=== PATIENT | male | born 1960 | race Caucasian/White ===

== ENCOUNTER 2018-11-15 23:55 | Inpatient (IN) | payer MEDICAID ==
[~2018-11-15] VITALS: Ht 170.2 cm; Wt 81.2 kg
[~2018-11-15 23:55] MED LIST: ACET-787 PO; BACL20TA4 PO; CLON1TAB1 PO; GABA600T1 PO; MULT1CAP28 PO; OMEP20EC4 PO; VIC PO; [UNRECOGNIZED DRUG - CODE] PO
--- NOTE | 2018-11-15 23:55 | NUR ---
PT TERRELL ALS, TAKEN TO ER BED 9
[2018-11-16 00:02] VITALS: BP 168/95
--- NOTE | 2018-11-16 00:05 | NUR ---
PT TO ED WITH C/O GEN CP PAIN UPON INSPIRATION AND EXPIRATION X 3 HRS. PT DENIES SOB. NO OBVIOUS EDEMA NOTED. CAP REFILL NORMAL; <3 SECONDS. NO APPARENT DISTRESS NOTED. ON ARRIVAL PT HAD 2 CANS OF BEER IN A GROCERY BAG, ALCOHOL WAS REMOVED FROM ROOM AND GIVEN TO SECURITY. PT PLACED INTO BED, PENDING MD DE JESUS.
[2018-11-16 00:37] LABS: HEMATOCRIT 45.2 % (36-52); HEMOGLOBIN 15.5 g/dL (12.0-18.0); MEAN CORPUSCULAR HEMOGLOBIN 32 pg (27-31); MEAN CORPUSCULAR HGB CONC 34 g/dL (33-37); MEAN CORPUSCULAR VOLUME 93.9 fL (80-94); PLATELET COUNT (AUTO) 156 K/uL (140-450); RED BLOOD CELL COUNT(AUTO) 4.81 MIL/uL (4.20-6.10); RED CELL DISTRIBUTION WIDTH 14.5 % (11.6-13.7); WHITE BLOOD COUNT (AUTO) 8.1 K/uL (4.8-10.8)
--- NOTE | 2018-11-16 00:40 | NUR ---
PT STATED, "I AM FEELING SUICIDAL." WHEN ASKED WHAT PROMPTED THIS, PER PT, "IM TIRED OF LIVING. MY MEDICAL ISSUES ARE JUST TOO MUCH. I WANT TO SLIT MY THROAT". ERMD NOTIFIED. WILL CONTINUE TO MONITOR.
[2018-11-16 00:46] LABS: ANION GAP 25.6 (8-16); CHLORIDE 97 mmol/L (98-107); CREATININE 1.3 mg/dL (0.7-1.3); GFR ARICAN-AMERICAN 73 mL/min (>90); GLUCOSE 94 mg/dL (74-106); POTASSIUM 3.6 mmol/L (3.5-5.1); SODIUM SERUM 139 mmol/L (136-145); UREA NITROGEN, BLOOD 14 mg/dL (7-18)
[2018-11-16 00:49] LABS: LYMPHOCYTES % (MANUAL) 10 % (20-46); MONOCYTES % (MANUAL) 3 % (5-12)
[2018-11-16 00:52] LABS: ACETAMINOPHEN < 0.5 ug/ml (10-30); ALBUMIN 4.2 g/dL (3.4-5.0); ASPARTATE AMINOTRANSFERASE 65 U/L (15-37); SALICYLATE < 2.8 mg/dL (2.8-20.0); TOTAL BILIRUBIN 1.1 mg/dL (0.0-1.0)
--- NOTE | 2018-11-16 01:05 | NUR ---
PT UNABLE TO PROVIDE URINE SAMPLE. ERMD NOTIFIED. NO NEW ORDERS.
--- NOTE | 2018-11-16 01:20 | NUR ---
INITIATED TELEPSYCH PER DR. MARTINEZ
--- NOTE | 2018-11-16 02:10 | NUR ---
PT HYPERTENSIVE. ASYMPTOMATIC. ERMD NOTIFIED. NO NEW ORDERS AT THIS TIME.
--- NOTE | 2018-11-16 02:35 | NUR ---
FOLLOW UP CALL TO TELEPSYCH. SPOKE WITH RENNY. TOLD STILL IN QUEUE WITH NO ETA DUE TO LARGE VOLUME OF PSYCH REQUESTS
--- NOTE | 2018-11-16 03:10 | NUR ---
PT HYPERTENSIVE AND TACHY. ERMD NOTIFIED. NEW ORDERS GIVEN FOR LISINOPROL 10MG PO AND NS BOLUS. ORDERS FOLLOWED. Addendum: 11/16/18 at 0524 by [employer] PT HYPERTENSIVE AND TACHYCARDIC. DESIRAE NOTIFIED. NEW ORDERS GIVEN FOR LISINOPROL 10MG PO AND NS BOLUS. ORDERS FOLLOWED.
[2018-11-16] MEDS ORDERED: LISINOPRIL 10 MG TAB PO ONE (03:15)
[2018-11-16] MEDS ORDERED: NACL 0.9% 1,000 ML IV ONE (03:15)
--- NOTE | 2018-11-16 04:00 | NUR ---
PT ASLEEP, EASILY AROUSABLE TO NAME. VSS. WILL CONTINUE TO MONITOR.
--- NOTE | 2018-11-16 04:13 | NUR ---
TELEPSYCH, DR. MICHEL, CALLED BACK AND SPOKE WITH TIMMY MCKAY
--- NOTE | 2018-11-16 04:18 | NUR ---
TELEPSYCH, DR. MICHEL, SPOKE WITH PATIENT VIA REMOTE COMMUNICATION
[2018-11-16] MEDS ORDERED: NALOXONE 0.4 MG/ML VIAL ONE (04:35)
--- NOTE | 2018-11-16 05:06 | NUR ---
PT MOVED TO BED 5
--- NOTE | 2018-11-16 05:07 | NUR ---
[place] [employer] AT BEDSIDE FOR 5150 EVAL
[2018-11-16] MEDS ORDERED: TIM.5OS OP (05:16)
[2018-11-16] MEDS ORDERED: DIAZ2TAB6 PO (05:16)
--- NOTE | 2018-11-16 05:35 | NUR ---
PT PLACED ON 5150 HOLD BY [facility] TSAI
[2018-11-16] MEDS ORDERED: LORazepam 2 MG/ML VIAL IVP ONE (06:00)
--- NOTE | 2018-11-16 06:00 | NUR ---
PT AWAKE. VSS. BEDRAIL X1 UP. BED IN LOWEST POSTION. WILL CONTINUE TO MONITOR.
[2018-11-16] MEDS ORDERED: ONDANSETRON 4 MG/2 ML VIAL IVP PRN (06:20)
[2018-11-16] MEDS ORDERED: ZOLPIDEM 5 MG TAB PO PRN (06:20)
[2018-11-16] MEDS ORDERED: LORazepam 2 MG/ML VIAL IVP PRN (06:20)
[2018-11-16] MEDS ORDERED: ACETAMINOPHEN 325 MG TAB PO PRN (06:20)
--- NOTE | 2018-11-16 06:27 | NUR ---
At this time packet is being reviewed for placement at multiple designated facilities , ER will be notified if placement is found.
[2018-11-16 06:29] LABS: BARBITURATE, URINE NEG. ng/ml (NEG <=200); BENZODIAZEPINE, URINE NEG. ng/mL (NEG <=200); CANNABINOID, URINE NEG. ng/mL (NEG <=50); COCAINE, URINE NEG. ng/mL (NEG <=300); OPIATE, URINE POS. ng/mL (NEG <=2000); PHENCYCLIDINE SCREEN,URINE NEG. ng/mL (NEG <=25)
--- NOTE | 2018-11-16 06:40 | NUR ---
Patient will be admitted to care of Dr Montes. Admited to telemetry. Will go to room 109A. Belongings list completed. Report to TIMMY Mcintyre. Transfer of care at this time.
[2018-11-16] MEDS ORDERED: NACL 0.9% 1,000 ML IV SCH (07:00)
[2018-11-16] MEDS ORDERED: cloNIDine 0.1 MG TAB PO PRN (07:25)
[2018-11-16] MEDS ORDERED: NITROGLYCERIN 0.4 MG TAB SL PRN (07:25)
--- NOTE | 2018-11-16 07:30 | NUR ---
RECEIVED PT REPORT FROM NIGHT CHARGE NURSE. PT IS AAOX4. PT AMBULATED TO RESTROOM, NO S/S OF ACUTE DISTRESS ON ROOM AIR. PT IS WITH SITTER, ON 5150 HOLD. PT ADMITTED TO , STATED HE CUT HIS THROAT RECENTLY. PT'S HANDS SHAKING WHEN STANDING. TOLD PT TO SIT DOWN. PT FOLLOWING COMMANDS. WILL ADMINISTER ATIVAN. IV TO RIGHT FA 24 G, PATENT AND INTACT. BED IN LOWEST POSITION, SAFETY PRECAUTION IN PLACE.
[2018-11-16 07:31] LABS: FREE T4 (FREE THYROXINE) 1.01 ng/dL (0.76-1.46); MAGNESIUM 1.9 mg/dL (1.8-2.4); PHOSPHORUS 3.3 mg/dL (2.5-4.9); THYROID STIMULATING HORMONE 3.61 uIU/mL (0.34-3.74)
[2018-11-16 08:00] VITALS: BP 146/77
--- NOTE | 2018-11-16 08:16 | NUR ---
PATIENT HAS BEEN SCREENED AND CATEGORIZED MODERATE NUTRITION RISK. PATIENT WILL BE SEEN WITHIN 3-5 DAYS OF ADMISSION. 11/17/18ANNA NGUYEN RD
[2018-11-16] MEDS: HYDROcodone/APAP 7.5/325 MG 1 TAB PO PRN (08:32)
[2018-11-16] MEDS: THIAMINE 100 MG TAB PO SCH (09:59)
[2018-11-16] MEDS: LISINOPRIL 5 MG TAB PO SCH (09:59)
[2018-11-16] MEDS: FOLIC ACID 1 MG TAB PO SCH (10:00)
[2018-11-16] MEDS ORDERED: MULTIVITAMIN-12 10 ML, THIAMINE 100 MG, MAGNESIUM SULFATE 50% 2,000 MG, FOLIC ACID 1 MG... IV SCH ×5 (10:00)
[2018-11-16] MEDS: MULTIVITAMIN 1 TAB PO SCH (10:01)
[2018-11-16] MEDS: DOCUSATE SODIUM 100 MG GELCAP PO SCH ×2 (10:01→20:40)
--- NOTE | 2018-11-16 10:05 | NUR ---
ANOTHER IV STARTED ON RIGHT HAND 22G. PT TOLERATED WELL.
[2018-11-16] MEDS ORDERED: ASPIRIN 81 MG TAB.CHEW PO SCH (10:15)
--- NOTE | 2018-11-16 10:22 | NUR ---
Late Entry- Packets faxed to the following facilities: [facility]
--- NOTE | 2018-11-16 10:35 | NUR ---
PT WAS TRYING TO GET OUT OF BED AND KEPT ASKING ABOUT TV AND SMOKING. REORIENT PT THIS IS SMOKE-FREE FACILITY EVEN OUTSIDE OF HOSPITAL AND LET PT STAY AT BED. OFFERED PT NICOTINE PATCH BUT PT REFUSED. PT'S HAND STILL SHAKING AND ATIVAN WILL BE GIVEN.
[2018-11-16] MEDS: LORazepam 2 MG/ML VIAL IM/IVP PRN (10:43)
[2018-11-16 12:00] VITALS: BP 103/70
--- NOTE | 2018-11-16 12:03 | NUR ---
AWAKE AND ALERT PATIENT WITH LUNCH TRAY AT THIS TIME VENEER GLUER TO ATTEMPT EKG AT A LATER TIME
[2018-11-16] MEDS ORDERED: cloNIDine 0.1 MG TAB PO SCH (13:00)
[2018-11-16] MEDS: LORazepam 1 MG TAB PO SCH ×2 (13:23→20:40)
[2018-11-16] MEDS ORDERED: VENLAFAXINE 37.5 MG TAB PO SCH (14:33)
--- NOTE | 2018-11-16 14:43 | NUR ---
HEPARIN HELD, NO APTT AVAILABLE AT THIS TIME. PT IS ALCOHOL ABUSER. PLATELET 154. PT WALKS OCCASIONALLY.
--- NOTE | 2018-11-16 15:50 | NUR ---
CALLED [facility] MEDICAL RECORD, LEFT A MESSAGE ASKING TO EXPEDITE THE ORDER FOR THE MEDICATION LIST AND RECORD.
[2018-11-16 16:00] VITALS: BP 138/58
--- NOTE | 2018-11-16 16:00 | NUR ---
PT WAS SLEEPING IN THE BED. NO S/S OF ANY DISCOMFORT. NO SOB NOTED. BREATHING EVEN AND UNLABORED. IV SITE INTACT, DRY, AND ASYMPTOMATIC.
[2018-11-16 17:25] LABS: BASOPHILS % (AUTO) 1.3 % (0.0-2.0); EOSINOPHILS # (AUTO) 0.1 K/uL (0-0.4); EOSINOPHILS % (AUTO) 2.7 % (0.0-4.0); HEMATOCRIT 39.8 % (36-52); HEMOGLOBIN 13.8 g/dL (12.0-18.0); LYMPHOCYTES # (AUTO) 0.8 K/uL (2.0-11.5); LYMPHOCYTES % (AUTO) 20.3 % (20.5-51.1); MEAN CORPUSCULAR HEMOGLOBIN 32 pg (27-31); MEAN CORPUSCULAR HGB CONC 35 g/dL (33-37); MEAN CORPUSCULAR VOLUME 93.3 fL (80-94); MONOCYTES # (AUTO) 0.5 K/uL (0.8-1.0); MONOCYTES % (AUTO) 13.1 % (1.7-9.3); NEUTROPHILS # (AUTO) 2.4 K/uL (1.8-7.7); NEUTROPHILS % (AUTO) 62.6 % (42.2-75.2); RED BLOOD CELL COUNT(AUTO) 4.26 MIL/uL (4.20-6.10); WHITE BLOOD COUNT (AUTO) 3.8 K/uL (4.8-10.8)
--- NOTE | 2018-11-16 17:25 | NUR ---
PT SLEEPING, NO S/S OF ACUTE DISTRESS NOTED.
[2018-11-16 18:15] LABS: PLATELET COUNT (AUTO) 88 K/uL (140-450)
--- NOTE | 2018-11-16 19:10 | NUR ---
RECEIVED PT IN STABLE CONDITION FROM AM NURSE. ASLEEP BUT EASILY AROUSE WHEN NAME CALLED. ON TELE MONITOR. WITH NO S/S OF ANY DISCOMFORT NOR PAIN NOTED AT THIS TIME. IVF INFUSING WELL ON THE RT HAND G#22 CLEAR AND PATENT. BED ON LOWEST POSITION. SIDE RAILS TO BE PADDED FOR SEIZURE PRECAUTION. SITTER FOR 51/50 HOLD. WILL CONTINUE TO MONITOR.
--- NOTE | 2018-11-16 19:10 | NUR ---
ENDORSED PT TO CLERICAL MANAGER NURSE. PT IN STABLE CONDITION. PT SLEEPING QUIETLY. NO S/S OF ACUTE RESPIRATORY DISTRESS.
--- NOTE | 2018-11-16 19:40 | NUR ---
URINE SPECIMEN COLLECTED FOR ANALYSIS. SEND TO LAB.
[2018-11-16] MEDS: NACL 0.9% 1,000 ML IV SCH ×2 (20:00→20:05)
[2018-11-16 20:01] LABS: APPEARANCE,URINE CLEAR (CLEAR); BILIRUBIN,URINE NEGATIVE (NEGATIVE); BLOOD, URINE NEGATIVE (NEGATIVE); COLOR,URINE YELLOW (YELLOW); LEUKOCYTE ESTERASE ,URINE NEGATIVE (NEGATIVE); NITRITE, URINE NEGATIVE (NEGATIVE); UGLUCOSE NEGATIVE (NEGATIVE)
--- NOTE | 2018-11-16 20:10 | NUR ---
DR. JORGE CAME AND TALKED TO PT. ACCORDING TO DR. JORGE , PT IS TAKING MED FOR HIV. HE TALKED TO DR. WALLACE ABOUT THE MEDICATION.
--- NOTE | 2018-11-16 20:19 | NUR ---
TROPONIN ORDERED FOR 1600 ON UNCOLLECTED AND ALSO THE 3RD TROPONIN. DR. WALLACE MADE AWARE . WILL CHANGE THE ORDER.
[2018-11-16 20:35] VITALS: BP 102/64
[2018-11-16] MEDS: ATORVASTATIN 20 MG TAB PO SCH (20:41)
[2018-11-16] MEDS: FAMOTIDINE 20 MG TAB PO SCH (20:41)
--- NOTE | 2018-11-16 21:34 | NUR ---
Follow up calls were made to contracted psych facilities. Currently no beds available sandy. [facility], spoke with Ramon. [facility], spoke with Derrick. [facility], spoke with Betzy. [facility], spoke with Nicole. [facility], spoke with Lanie. [facility], spoke with Susan. Will continue to follow up with contracted facilities for placement.
--- NOTE | 2018-11-16 21:39 | NUR ---
Ron PRATT CAME AND MADE HIM AWARE ABOUT THE PLATELETS THAT DROPPED FROM 156 TO 88. HE SAID TO DC HEPARIN. DR. WALLACE MADE AWARE ABOUT THIS.
--- NOTE | 2018-11-16 23:00 | NUR ---
PHARMACY CALLED TO CLARIFY AZITHROMYCIN PO ORDERED. DR. WALLACE MADE AWARE .
[2018-11-16 23:30] VITALS: BP 107/70
--- NOTE | 2018-11-17 01:00 | NUR ---
PT GOT UP TO THE SIDE OF THE BED. NOTICED THAT PT IV IS ALREADY OUT. PT IS WET. IV STOPPED . CLEANED PT AND GOWN CHANGED TO A CLEAN ONE. BUT PT REFUSED TO HAVE A NEW IV ACCESS STARTED AT THIS TIME. HE SAID HE DOESN'T NEED IT. SHE JUST GO BACK TO SLEEP. WILL TRY LATER .
--- NOTE | 2018-11-17 02:00 | NUR ---
PT IS ASLEEP. NO S/S OF ANY DISCOMFORT NOR PAIN NOTED.
--- NOTE | 2018-11-17 02:25 | NUR ---
PT IS ASLEEP. NO S/S OF ANY DISCOMFORT NOTED. WILL CONTINUE TO MONITOR.
--- NOTE | 2018-11-17 02:50 | NUR ---
DR. WALLACE,RESIDENT MD MADE AWARE THAT PT REFUSED TO START A NEW IV ACCESS.
[2018-11-17] MEDS: LORazepam 1 MG TAB PO SCH (04:42)
[2018-11-17 04:45] VITALS: BP 119/53
--- NOTE | 2018-11-17 04:45 | NUR ---
TOLD PT THE NEED TO RESTART A NEW IV ACCESS BUT PT GOT MAD AND AND KEEP ON REFUSING. EVEN JUST TAKING VITAL SIGNS,HE COMPLAINED . WILL HAVE DR. WALLACE,RESIDENT MAX ALVARADO.
[2018-11-17] MEDS: NACL 0.9% 1,000 ML IV SCH ×2 (06:00→16:00)
--- NOTE | 2018-11-17 06:00 | NUR ---
BLOOD WAS DRAWN THIS AM . WILL FOLOW UP RESULT.
[2018-11-17 06:39] LABS: BASOPHILS % (AUTO) 0.5 % (0.0-2.0); EOSINOPHILS # (AUTO) 0.1 K/uL (0-0.4); EOSINOPHILS % (AUTO) 1.8 % (0.0-4.0); HEMOGLOBIN 13.5 g/dL (12.0-18.0); LYMPHOCYTES # (AUTO) 0.7 K/uL (2.0-11.5); LYMPHOCYTES % (AUTO) 18.3 % (20.5-51.1); MEAN CORPUSCULAR HEMOGLOBIN 32 pg (27-31); MEAN CORPUSCULAR HGB CONC 35 g/dL (33-37); MONOCYTES # (AUTO) 0.4 K/uL (0.8-1.0); MONOCYTES % (AUTO) 10.1 % (1.7-9.3); NEUTROPHILS # (AUTO) 2.7 K/uL (1.8-7.7); NEUTROPHILS % (AUTO) 69.3 % (42.2-75.2); PLATELET COUNT (AUTO) 70 K/uL (140-450); RED CELL DISTRIBUTION WIDTH 14.2 % (11.6-13.7); WHITE BLOOD COUNT (AUTO) 3.9 K/uL (4.8-10.8)
[2018-11-17 06:55] LABS: ANION GAP 13.7 (8-16); CARBON DIOXIDE 24.5 mmol/L (21-32); CREATININE 0.9 mg/dL (0.7-1.3); POTASSIUM 3.2 mmol/L (3.5-5.1)
--- NOTE | 2018-11-17 07:10 | NUR ---
ENDORSED PT IN STABLE CONDITION TO AM NURSE.
--- NOTE | 2018-11-17 07:15 | NUR ---
RECEIVED PT FROM BIOENGINEER NURSEGAGE, PT IS AWAKE AND LYING ON THE BED WITH SITTER ON THE BEDSIDE, PT HAS MILD SHAKINESS ON THE HAD AND HAS NO PERIPHERAL LINE, PT PULLED OUT THE IV LINE PER NIGHT NURSE AND PT REFUSED ANOTHER RE-INSERTION. FALL PRECAUTION ENFORCED, NO SIGN OF DISTRESS NOTED AND WILL MONITOR PT.
[2018-11-17 08:00] VITALS: BP 116/80
[2018-11-17] MEDS ORDERED: POTASSIUM CHLORIDE 10 MEQ TABER PO SCH (08:00)
[2018-11-17] MEDS ORDERED: SODIUM PHOSPHATE 15 MMOLE in NACL 0.9% 250 ML IV SCH (08:00)
[2018-11-17] MEDS: SODIUM PHOS / POTASSIUM PHOS 1 PKT PDR PO SCH ×3 (08:54→16:36)
[2018-11-17] MEDS: FOLIC ACID 1 MG TAB PO SCH (08:54)
[2018-11-17] MEDS: FAMOTIDINE 20 MG TAB PO SCH ×2 (08:54→20:00)
[2018-11-17] MEDS: GABAPENTIN 300 MG CAP PO SCH ×3 (08:55→16:35)
[2018-11-17] MEDS: LISINOPRIL 5 MG TAB PO SCH (08:55)
[2018-11-17] MEDS: VENLAFAXINE 37.5 MG TAB PO SCH (08:55)
[2018-11-17] MEDS: DOCUSATE SODIUM 100 MG GELCAP PO SCH ×2 (08:55→20:00)
[2018-11-17] MEDS: MULTIVITAMIN 1 TAB PO SCH (08:56)
[2018-11-17] MEDS: chlordiazePOXIDE 25 MG CAP PO SCH ×3 (08:56→16:35)
[2018-11-17] MEDS: BACLOFEN 10 MG TAB PO SCH ×3 (08:57→16:34)
[2018-11-17] MEDS: THIAMINE 100 MG TAB PO SCH (08:57)
[2018-11-17] MEDS ORDERED: DIAZEPAM 2 MG TAB PO SCH (09:00)
[2018-11-17] MEDS ORDERED: AZITHROMYCIN SUSP 200 MG/5 ML PO SCH (09:00)
[2018-11-17] MEDS ORDERED: GABAPENTIN PO SCH (09:00)
[2018-11-17] MEDS ORDERED: ASPIRIN 81 MG TAB.CHEW PO SCH (09:00)
[2018-11-17] MEDS ORDERED: SULFAMETH/TRIMETH DS 800/160MG 1 TAB PO SCH ×2 (09:00)
[2018-11-17] MEDS ORDERED: BACLOFEN PO SCH (09:00)
[2018-11-17] MEDS: TIMOLOL OP 0.5% 5 ML BTL OP SCH ×2 (09:08→20:09)
--- NOTE | 2018-11-17 09:09 | NUR ---
PT IS AWAKE AND ORAL MEDICATIONS WERE GIVEN AND PT TOLERATED IT, VITAL SIGNS CHECKED AND IS WITHIN NORMAL LIMIT. WILL MONITOR PT.
[2018-11-17] MEDS ORDERED: EMTRICITABINE/TENOFOVIR 200-300MG 1 TAB PO SCH (09:20)
[2018-11-17] MEDS ORDERED: SODIUM CHLORIDE 1 GM TAB PO SCH (10:00)
--- NOTE | 2018-11-17 11:53 | NUR ---
PT IS AWAKE AND VITAL SIGNS CHECKED AND IS WITHIN NORMAL LIMIT, ORAL MEDICATIONS GIVEN AND PT TOLERATED IT. NO SIGN OF DISTRESS NOTED AND WILL MONITOR PT.
[2018-11-17 12:00] VITALS: BP 116/80
[2018-11-17] MEDS: HYDROcodone/APAP 7.5/325 MG 1 TAB PO PRN ×2 (12:03→16:36)
[2018-11-17] MEDS: NICOTINE TRANSD SYS 7 MG/24 HR PATCH TD SCH (13:18)
--- NOTE | 2018-11-17 13:19 | NUR ---
PT IS AWAKE AND LYING ON THE BED, SITTER ON THE BEDSIDE, VERBALIZED A HEADACHE OF 6/10, ASKED FOR TYLENOL, NICOTINE PATCH APPLIED ON THE RT UA, NMO SIGN OF DISTRESS NOTED AN WILL MONITOR PT.
--- NOTE | 2018-11-17 13:50 | NUR ---
DR. FELIPE CAME TO THE PT'S ROOM AND SPOKE TO PT NOW, PT RESPONDING APPROPRIATELY.
[2018-11-17 16:00] VITALS: BP 127/79
--- NOTE | 2018-11-17 16:18 | NUR ---
IVF WAS NOT STARTED BECAUSE PT HAS NO IV LINE AND REFUSED TO HAVE AN INSERTION.
--- NOTE | 2018-11-17 16:40 | NUR ---
PT IS BEING RUDE NOW, WAS ASKED TO CALM DOWN AND VITAL SIGNS WAS TAKEN AND BP WAS 127/79, PULSE IS81, O2 SATURATION IS 98%, TEMPERATURE IS 98.4, AND RESPIRATION IS 18/MIN, PT VERBALIZED A PAIN RATE OF 7/10 AND ORAL MEDICATIONS WERE GIVEN AND PT TOLERATED IT. WILL MONITOR AND RE-ASSESS PAIN.
--- NOTE | 2018-11-17 16:40 | NUR ---
PT STARTED TO BE RUDE AND SHOUTING AND IS ASKING FOR PAIN MEDICATION, PT IMMEDIATELY GOT UP FROM THE BED AND WAS ACCIDENTALLY TRIPPED ON THE BLANKET AND FELL ON HIS KNEES AND HANDS AND BUMPED HIS HEAD ON THE FLOOR REPORTED BY THE SITTER ON THE BEDSIDE, NURSERY RN. PT WAS ASSISTED BACK TO BED AND VITAL SIGNS WAS TAKEN AND BP IS 127/79, PULSE IS 81, TEMPERATURE IS 98.4, O2 SATURATION IS 98% AND RESPIRATION IS EVEN AND AT A RATE 0F 18/MIN. PT WAS ASSISTED BACK TO BED WITH THE HELP OF NURSE IMAGING SYSTEM ADMINISTRATORKVNG, TALKING TO PT AND MAKING PT FEEL CALM. WILL MONITOR PT.
--- NOTE | 2018-11-17 19:20 | NUR ---
ENDORSED PT TO WET MIXER NURSEGAGE FOR CONTINUITY OF CARE, PT IS UP AND TO THE DOOR, VERBALIZED THAT HE IS ALREADY WILLING TO HAVE AN IV LINE RE-INSERTED, PT IS STABLE AT THIS TIME WITH 1:1 SITTER ON THE BEDSIDE.
--- NOTE | 2018-11-17 19:21 | NUR ---
RECEIVED PT IN STABLE CONDITION FROM AM NURSE. PT IS AWAKE,ALERT AND ORIENTED. ON TELE MONITOR. WITH 1;1 SITTER FOR SAFETY DUE TO SUICIDAL THOUGHTS. NO IV ACCESS AT THIS TIME. BED ON LOW POSITION,SIDE RAILS ARE PADDED FOR SEIZURE PRECAUTIONS. CLOSED OBSERVATION AND MONITORING NEEDED FOR SAFETY. WILL CONTINUE TO MONITOR.
[2018-11-17 20:00] VITALS: BP 102/68
[2018-11-17] MEDS: ATORVASTATIN 20 MG TAB PO SCH (20:00)
[2018-11-17] MEDS: LORazepam 2 MG/ML VIAL IM/IVP PRN ×2 (20:00→23:27)
--- NOTE | 2018-11-17 20:00 | NUR ---
VERY AGITATED BUT PT ALLOWED ME TO START A NEW IV ACCESS .NEW ONE ON THE RT FA G#22. CLEAR AND PATENT. ATIVAN IVP GIVEN ORDERED. IVF NS AT 100ML /HR RESTARTED ORDERED AFTER. WILL CONTINUE TO MONITOR.
--- NOTE | 2018-11-17 21:29 | NUR ---
PT HAS BEEN ASKING AND YELLING FOR IV PAIN MEDS. I TOLD HIM NORCO IS ORDERED FOR PAIN. HE REFUSED . CALLED DR. WALLACE ,RESIDENT . MADE HIM AWARE. CAME AND TALKED TO PT. GIVEN ORDERED PERCOCET FOR PAIN. WILL CONTINUE TO MONITOR.
[2018-11-17] MEDS ORDERED: oxyCODONE/APAP 5/325 MG 1 TAB TAB PO SCH (21:30)
--- NOTE | 2018-11-17 21:40 | NUR ---
PT GETTING OUT OF BED AND SAID HE WANTS TO GO HOME TONIGHT. HARD TO CONTROL. CALLED SECURITY , CHARGE NURSE AND DR. WALLACE CAME ALSO. EXPLAINED TO HIM THAT HE IS ON HOLD. SECURITY STAYED FOR A WHILE AND TALKED TO HIM. LEFT WHEN PT ALREADY BACK IN BED.
--- NOTE | 2018-11-17 22:27 | NUR ---
PT IS SLEEPING AT THIS TIME. NO S/S OF ANY PAIN NOR DISCOMFORT NOTED. WILL CONTINUE TO MONITOR.
--- NOTE | 2018-11-17 23:27 | NUR ---
UT IS AWAKE, YELLING AND THREATENING. WANTS TO GO HOME. SECURITY CAME, HOTEL DESK CLERK HERE. ATIVAN IVP GIVEN ORDERED.
--- NOTE | 2018-11-17 23:51 | NUR ---
LINEN GRADER JUST CALLED, FOLLOWING UP THE ORDER FOR CT HEAD WITHOUT CONTRAST. TOLD HER THAT PT RIGHT NOW IS AGITATED AND YELLING TO US SO. NOT RIGHT TIME TO DO IT. WILL LET HER KNOW WHEN PT CALM DOWN.
[2018-11-18 00:34] VITALS: BP 118/76
[2018-11-18] MEDS: HYDROcodone/APAP 7.5/325 MG 1 TAB PO PRN ×3 (01:02→20:49)
--- NOTE | 2018-11-18 01:15 | NUR ---
PT SLEEPING AT THIS TIME. NO DISCOMFORT NOTED.
[2018-11-18] MEDS: NACL 0.9% 1,000 ML IV SCH ×2 (02:00→17:44)
[2018-11-18] MEDS: LORazepam 2 MG/ML VIAL IM/IVP PRN ×4 (03:14→18:32)
--- NOTE | 2018-11-18 03:14 | NUR ---
PT YELLING AGAIN ,VERY AGITATED. RN TETRYL WRINGER OPERATOR CAME AND TALKED TO PT. ATIVAN IVP ORDERED GIVEN. WILL CONTINUE TO MONITOR.
--- NOTE | 2018-11-18 03:35 | NUR ---
Called following contracted facilities for bed placement. [facility], spoke with Jazmine. No beds available at this time. [facility], spoke with Sunita. [facility], spoke with Brad. No beds available sandy. [facility], spoke with Eliane. No beds available at this time. [facility], spoke with Kristal. No beds available at this time. [facility], spoke with Susan.
--- NOTE | 2018-11-18 05:10 | NUR ---
BURLAP BAG SEWER HERE TO SEE IF PT IS READY FOR THE CT SCAN WITHOUT CONTRAST. PT IS SLEEPING WELL AT THIS TIME AFTER THE ATIVAN GIVEN EARLIER. WILL TRY LATER TODAY . DR. WALLACE RESIDENT, MADE AWARE.
[2018-11-18 05:30] VITALS: BP 120/74
--- NOTE | 2018-11-18 05:50 | NUR ---
PT ASKED IF HE IS READY TO GO FOR CT SCAN HEAD WITHOUT CONTRAST. HE REFUSED. WILL ENDORSED TO AM NURSE.
[2018-11-18 06:59] LABS: ANION GAP 11.8 (8-16); CARBON DIOXIDE 26.8 mmol/L (21-32); CREATININE 1.2 mg/dL (0.7-1.3); POTASSIUM 3.6 mmol/L (3.5-5.1)
--- NOTE | 2018-11-18 07:02 | NUR ---
ENDORSED PT IN STABLE CONDITION TO AM NURSE FOR CONTINUITY OF CARE.
--- NOTE | 2018-11-18 07:05 | NUR ---
RECEIVED PT FROM FAMILY SERVICE WORKER NURSEGAGE, PT IS AWAKE AND AMBULATING IN THE ROOM AND TALKING AND YELLING, AGGRESSIVE TO STAFF, PT HAS AN IV LINE ON THE RT FA G.22 ON SALINE LOCK, 1:1 SITTER ON BEDSIDE. PT SHOWS NO SIGN OF DISTRESS AND WILL CONTINUE TO BE MONITORED
[2018-11-18 07:06] LABS: BASOPHILS % (AUTO) 1.2 % (0.0-2.0); EOSINOPHILS # (AUTO) 0.1 K/uL (0-0.4); EOSINOPHILS % (AUTO) 4.6 % (0.0-4.0); HEMATOCRIT 40.3 % (36-52); LYMPHOCYTES # (AUTO) 0.9 K/uL (2.0-11.5); LYMPHOCYTES % (AUTO) 33.4 % (20.5-51.1); MEAN CORPUSCULAR HEMOGLOBIN 33 pg (27-31); MEAN CORPUSCULAR HGB CONC 35 g/dL (33-37); MEAN CORPUSCULAR VOLUME 93.9 fL (80-94); MONOCYTES # (AUTO) 0.3 K/uL (0.8-1.0); MONOCYTES % (AUTO) 12.8 % (1.7-9.3); NEUTROPHILS # (AUTO) 1.3 K/uL (1.8-7.7); PLATELET COUNT (AUTO) 77 K/uL (140-450); RED BLOOD CELL COUNT(AUTO) 4.29 MIL/uL (4.20-6.10); WHITE BLOOD COUNT (AUTO) 2.7 K/uL (4.8-10.8)
[2018-11-18 07:10] LABS: MAGNESIUM 2.3 mg/dL (1.8-2.4); PHOSPHORUS 2.2 mg/dL (2.5-4.9)
[2018-11-18 08:00] VITALS: BP 116/69
--- NOTE | 2018-11-18 08:00 | NUR ---
PT IS EATING HIS BREAKFAST AND SITTER ON BEDSIDE, VITAL SIGNS TAKEN AND BP IS 116/69, PULSE IS 74, TEMPERATURE IS 97.3, O2 SATURATION IS 100%, RESPIRATION IS 18/MIN, PT IS AGGRESSIVE AND SHOUTS AT STAFF, NO SIGN OF DISTRESS NOTED AND WILL CONTINUE TO MONITOR PT. 1:1 SITTER ON BEDSIDE.
--- NOTE | 2018-11-18 08:15 | NUR ---
PT TOOK A SHOWER NOW ORDERED BY DR. LIU.
--- NOTE | 2018-11-18 08:16 | NUR ---
PT WAS TRANSFERRED TO MED SURG NOW, RN TRANSPLANT REMOVED.
[2018-11-18] MEDS: BACLOFEN 10 MG TAB PO SCH ×3 (08:39→16:38)
[2018-11-18] MEDS: DOCUSATE SODIUM 100 MG GELCAP PO SCH ×2 (08:39→20:48)
[2018-11-18] MEDS: VENLAFAXINE 37.5 MG TAB PO SCH (08:39)
[2018-11-18] MEDS: TIMOLOL OP 0.5% 5 ML BTL OP SCH ×2 (08:39→20:48)
[2018-11-18] MEDS: MULTIVITAMIN 1 TAB PO SCH (08:40)
[2018-11-18] MEDS: THIAMINE 100 MG TAB PO SCH (08:40)
[2018-11-18] MEDS: FAMOTIDINE 20 MG TAB PO SCH ×2 (08:40→20:49)
[2018-11-18] MEDS: GABAPENTIN 300 MG CAP PO SCH ×3 (08:40→16:37)
[2018-11-18] MEDS: FOLIC ACID 1 MG TAB PO SCH (08:40)
--- NOTE | 2018-11-18 08:40 | NUR ---
PT IS AWAKE, SITTER ON BEDSIDE, VITAL SIGNS CHECKED AND IS WITHIN NORMAL LIMIT, PT IS TALKING LOUDLY, ORAL MEDICATIONS WERE GIVEN AND PT TOLERATED IT. NO SIGN OF DISTRESS NOTED AND WILL MONITOR PT.
[2018-11-18] MEDS: LISINOPRIL 5 MG TAB PO SCH (08:41)
[2018-11-18] MEDS: EMTRICITABINE/TENOFOVIR 200-300MG 1 TAB PO SCH (08:41)
[2018-11-18] MEDS: chlordiazePOXIDE 25 MG CAP PO SCH ×3 (08:41→16:38)
[2018-11-18] MEDS: SODIUM PHOS / POTASSIUM PHOS 1 PKT PDR PO SCH ×3 (08:42→16:37)
[2018-11-18] MEDS ORDERED: LORazepam 2 MG/ML VIAL IM/IVP PRN (09:20)
[2018-11-18] MEDS ORDERED: LORazepam 2 MG/ML VIAL IVP SCH (09:30)
--- NOTE | 2018-11-18 09:45 | NUR ---
PT ANXIOUS ,Bp obtained 116/64,
--- NOTE | 2018-11-18 10:22 | NUR ---
[facility] attempted to contact case management social worker, Jo, left message regarding medical clearance, need clarification.
[2018-11-18] MEDS ORDERED: CEPH250C16 PO (11:17)
[2018-11-18] MEDS ORDERED: LIB5 PO (11:20)
[2018-11-18 12:00] VITALS: BP 123/84
--- NOTE | 2018-11-18 12:27 | NUR ---
FOLLOW UP CALL MADE TO CT TALKED TO RA, REGARDING THE CT OF THE HEAD, PER RA SHE WILL CALL US BACK WHEN THE CT COME BACK FROM BREAK, ENDORSED TO VANDANA TO FF UP.
[2018-11-18] MEDS: NICOTINE TRANSD SYS 7 MG/24 HR PATCH TD SCH (13:13)
--- NOTE | 2018-11-18 14:20 | NUR ---
PT REFUSED TO HAVE THE CT OF HEAD DONE PER RAD LINOLEUM LAYER APPRENTICE.
[2018-11-18 16:00] VITALS: BP 103/72
--- NOTE | 2018-11-18 16:07 | NUR ---
LATE ENTRY. RECEIVED A CALL THIS MORNING FROM [facility], [place], ASKING IF THE PATIENT WAS MEDICALLY CLEARED. I GAVE THE MESSAGE TO ASSIGNED WIRE ROPE SLING MAKER
--- NOTE | 2018-11-18 18:32 | NUR ---
PT IS YELLING AND SHOUTING AND IS ASKING FOR AN ATIVAN, MEDICATION WAS GIVEN, VITAL SIGN CHECKED PER PARAMETER AND IS WITHIN NORMAL LIMIT. WILL MONITOR PT.
--- NOTE | 2018-11-18 19:25 | NUR ---
RECEIVED REPORT FOR CONTINUITY OF CARE FROM VANDANA RN DAYSHIFT NURSE. PT IS IN HALLWAY DOOR DEMANDING TO GET A TAXI SO HE CAN LEAVE, PT REMINDED THAT HE WAS ON A HOLD. PT ON FALLS AND SEIZURE PRECAUTIONS.
--- NOTE | 2018-11-18 19:25 | NUR ---
ENDORSED PT TO PLACEMENT COORDINATOR NURSE, JOSE FOR CONTINUITY OF CARE, PT IS AGGRESSIVE AND YELLING AND SAYING FOUL WORDS TO STAFF.
--- NOTE | 2018-11-18 19:45 | NUR ---
PT BECAME AGITATED IN ROOM BECAUSE HE CANNOT LEAVE AND STARTED SLAMMING ITEMS IN ROOM. MICHEAL VASQUEZ WAS CALLED AND SECURITY ARRIVED AT BEDSIDE. SECURITY ABLE TO SPEAK WITH PT AND CLEAR CODE VASQUEZ.
--- NOTE | 2018-11-18 19:50 | NUR ---
PT LEFT BUILDING AND [place] [employer] WAS CALLED.
[2018-11-18 20:00] VITALS: BP 112/74
--- NOTE | 2018-11-18 20:07 | NUR ---
[place] [employer] CALLED AND PT WAS FOUND. PT INTRANSIT BACK TO [place] BY [place].
--- NOTE | 2018-11-18 20:15 | NUR ---
PT BACK IN ROOM AND SOME WHAT RESTLESS, PT REQUESTED PAIN MEDICATION NEW GOWN AND NEW SOCKS FROM BEING OUTSIDE. GRANTED. PT ALSO C/O THAT HE HASNT SLEPT IN 2 DAYS. PT GIVEN NEW GOWN, SOCKS WELL NORCO FOR GENERALIZED PAIN AND AMBIEN TO HELP PT TO SLEEP. [employer] WANTED TO SPEAK TO RESIDENT CONCERNING HIS BEHAVIOR AND THAT HE IS ON A HOLD FROM THE [place] [employer]. PT LISTENED BUT AGAIN BECAME DEFENSIVE, WANTING TO LEAVE SO HE CAN BUY CIGARETTES [place] [employer], PORCELAIN TECHNICIAN AND CHARGE NURSE SPOKE WITH [place] [employer] AND AGREED TO PLACE PT ON RESTRAINTS SO THAT HE WOULD NOT LEAVE. PT PUT ON SOFT WRIST RESTRAINTS WILL CONTINUE TO MONITOR PT FOR SAFETY. SITTER AT BEDSIDE.
[2018-11-18] MEDS ORDERED: diphenhydrAMINE 50 MG/ML VIAL IVP PRN (20:35)
--- NOTE | 2018-11-18 20:45 | NUR ---
PT IN BED WITH RESTRAINTS ON. NO S/S OF INJURY TO SKIN CIRCULATION CHECKED CAP REFILL LESS THAN 2 SECONDS. V/S FOLLOWS T 97.4 P 78 R 18 B/P 112/74 02 99% ON ROOM AIR.
[2018-11-18] MEDS: ATORVASTATIN 20 MG TAB PO SCH (20:48)
--- NOTE | 2018-11-18 22:30 | NUR ---
PT IN BED ASLEEP RESTRAINTS ON SKIN AND CIRCULATION OK. SEIZURE AND ASPIRATION PRECAUTIONS IN PLACE. SITTER AT BEDSIDE.
[2018-11-19] VITALS: BP 115/80
[2018-11-19] MEDS: LORazepam 2 MG/ML VIAL IM/IVP PRN ×6 (00:12→22:36)
[2018-11-19] MEDS ORDERED: HALOPERIDOL IM 5 MG/ML VIAL IM PRN ×2 (00:25→03:30)
--- NOTE | 2018-11-19 00:30 | NUR ---
PT IN BED, RESTRAINTS RELEASED PER PROTOCOL. PT URINATED 600MLS OF YELLOW URINE AND DRANK 240MLS OF WATER. V/S FOLLOWS T 97.2 P 72 R 20 B/P 115/80 02 100% ON R/A.PT REQUESTED HIS ATIVAN, WHICH WAS GIVEN IVP. PT IN BED WITH BOTH RESTRAINTS ON HIS WRIST NO S/S OF INJURY AND CAP REFILL IS LESS THAN [address] WALLACE REGARDING A PRN ORDER INCASE PT BECOMES MORE AGITATED. Yana SAID HE WOULD ORDER PRN HALDOL SHOT. PT CURRENTLY RSTING IN BED WITH EYES CLOSED AND CALM, SITTER AT BEDSIDE.
--- NOTE | 2018-11-19 02:21 | NUR ---
Calls were made to the following contracted facilities for bed placement. Currently no beds available at this time. [facility], spoke with Ramon. [facility], spoke with Sunita. [facility], spoke with Betzy. [facility], spoke with Donny. [facility], spoke with Cathleen. [facility], spoke with Susan. Will endorse to AM shift with continuing with bed placement.
--- NOTE | 2018-11-19 05:30 | NUR ---
PT REQUEST IVP ATIVAN FOR ANXIETY, GIVEN ORDERED.
--- NOTE | 2018-11-19 06:54 | NUR ---
PT AGREED TO HAVE CT OF HEAD DONE, PT TAKEN VIA W/C AND RETURNED VIA W/C ONCE TEST WAS COMPLETED. PT WASHED FACE HANDS AND BRUSHED HIS TEETH. PT HAD HIS MORNING COFFEE IN ROOM, NO BEHAVIORS NOTED, PT IN STABLE CONDITION.
--- NOTE | 2018-11-19 06:57 | NUR ---
POT WENT BACK INTO BED FOR A NAP,WILL ENDORSE PLAN OF CARE TO NEXT SHIFT, PT IN STABLE CONDITION , NO BEHAVIORS NOTED.
--- NOTE | 2018-11-19 07:20 | NUR ---
RECEIVED HAND OFF REPORT FROM UI DEVELOPER NURSE. PT IS IN BED SLEEPING. NOTABLE CHEST RISE AND FALL. PT APPEARS IN NO APPARENT DISTRESS. PT IS ASSIGNED A 1:1 SITTER. WILL CONTINUE TO MONITOR Addendum: 11/19/[address] RN PT HAS AN ORDER FOR RESTRAINTS. PT IS NOT ON RESTRAINTS AT THE MOMENT. UI DEVELOPER NURSE STATED THAT THE PATIENT HAS BEEN DOING WELL WITHOUT THE RESTRAINTS.
[2018-11-19] MEDS ORDERED: SODIUM PHOS / POTASSIUM PHOS 1 PKT PDR PO SCH (08:00)
--- NOTE | 2018-11-19 08:25 | NUR ---
PT AWAKE IN BED. PT IS REQUESTING FOOD TO BE HEATED UP. PT ALSO REQUESTING ATIVAN BECAUSE HE FEELS AGITATED.
--- NOTE | 2018-11-19 08:30 | NUR ---
ADMINISTERED PTS MORNING MEDICATIONS AND ASSESSED PT VITAL SIGNS PT VITAL SIGNS WITHIN NORMAL LIMITS, BP 105/71
--- NOTE | 2018-11-19 08:30 | NUR ---
ATIVAN ADMINISTERED PT REQUESTED ATIVAN PT STATED HE WAS FEELING AGITATED. ADMINISTERED 1MG OF ATIVAN PER DR ORDERS. PT REQUESTING 2-3MG OF ATIVAN AND REQUESTING TO SPEAK WITH THE DOCTOR.
--- NOTE | 2018-11-19 08:45 | NUR ---
DR CUENCA AT PT BEDSIDE SPEAKING WITH PT AND HEARING WHAT THE PT REQUEST. PT WROTE A LIST OF MEDICATIONS THAT HE TAKES. DR CUENCA TOOK LIST AND SAID HE WILL VERIFY THEM FOR THE PT. PER PT REQUEST.
[2018-11-19] MEDS: MULTIVITAMIN 1 TAB PO SCH (08:53)
[2018-11-19] MEDS: DOCUSATE SODIUM 100 MG GELCAP PO SCH ×2 (08:53→21:39)
[2018-11-19] MEDS: SODIUM PHOS / POTASSIUM PHOS 1 PKT PDR PO SCH ×3 (08:53→17:47)
[2018-11-19] MEDS: FOLIC ACID 1 MG TAB PO SCH (08:54)
[2018-11-19] MEDS: FAMOTIDINE 20 MG TAB PO SCH ×2 (08:54→21:42)
[2018-11-19] MEDS: THIAMINE 100 MG TAB PO SCH (08:54)
[2018-11-19] MEDS: BACLOFEN 10 MG TAB PO SCH ×3 (08:54→17:44)
[2018-11-19] MEDS: VENLAFAXINE 37.5 MG TAB PO SCH (08:55)
[2018-11-19] MEDS: LISINOPRIL 5 MG TAB PO SCH (08:55)
[2018-11-19] MEDS: chlordiazePOXIDE 25 MG CAP PO SCH ×3 (08:56→17:47)
[2018-11-19] MEDS: GABAPENTIN 300 MG CAP PO SCH ×2 (08:56→13:11)
--- NOTE | 2018-11-19 09:00 | NUR ---
PT REQUESTING MORE ATIVAN BECAUSE HE IS FEELING AGITATED. NOTED DROWSINESS INFORMED PT THERE IS NO ATIVAN AVAILABLE AT THE MOMENT AND TO WAIT FOR THE DR TO INPUT THE ORDER
--- NOTE | 2018-11-19 09:10 | NUR ---
PT SLEEPING. NOTABLE CHEST RISE AND FALL. PT APPEARS IN NO APPARENT DISTRESS, WILL CONTINUE TO MONITOR. 1:1 SITTER AT PT BEDSIDE
[2018-11-19] MEDS: TIMOLOL OP 0.5% 5 ML BTL OP SCH ×2 (09:24→21:38)
[2018-11-19] MEDS: EMTRICITABINE/TENOFOVIR 200-300MG 1 TAB PO SCH (09:25)
--- NOTE | 2018-11-19 09:30 | NUR ---
ATIVAN REASSESSMENT PT ASLEEP RESTING QUIETLY, NOTABLE CHEST RISE AND FALL. NO SIGNS OF DISTRESS. SITTER AT BEDSIDE WILL CONTINUE TO MONITOR
--- NOTE | 2018-11-19 11:05 | NUR ---
PT ASLEEP. NOTABLE CHEST RISE AND FALL. PT APPEARS IN NO APPARENT DISTRESS, SITTER AT BEDSIDE. WILL CONTINUE TO MONITOR
[2018-11-19 12:05] VITALS: BP 118/93
--- NOTE | 2018-11-19 12:40 | NUR ---
PT IS AWAKE AND WALKING TO THE RESTROOM. PT AMBULATES WELL WITH NO ASSISTANCE. PT EATING LUNCH AND REQUESTING ATIVAN
[2018-11-19] MEDS: NICOTINE TRANSD SYS 7 MG/24 HR PATCH TD SCH ×2 (12:43→13:53)
--- NOTE | 2018-11-19 12:55 | NUR ---
ATIVAN ADMINISTERED PER PT REQUEST. ADMINISTERED [address] ORDERS. PT IS AWAKE AND TALKING. SITTER AT BEDSIDE. WILL CONTINUE TO MONITOR.
--- NOTE | 2018-11-19 13:34 | NUR ---
PT AWAKE AND REQUESTING PEN, PAPER, AND A PHONE TO TALK TO [employer] NUM[employer] AND TO TALK TO THE [employer] OFFICE. REQUESTED THE PEN AND PAPER TO WRITE NOTES ABOUT THE PHONE CALLS AND TO MAKE A SHOPPING LIST.
[2018-11-19] MEDS: NACL 0.9% 1,000 ML IV SCH (13:44)
--- NOTE | 2018-11-19 13:55 | NUR ---
ATIVAN REASSESSMENT PT STILL VERY AGITATED OCCASIONALLY PACES ROOM AND STANDS AT DOORWAY DEMANDING PEN AND PAPER TO TAKE NOTES. DEMANDING TO SPEAK TO DOCTORS AND SAYS HE HAS TO HANDLE BUSINESS AND CALL THE CONTAINER [employer] NUMBER
--- NOTE | 2018-11-19 13:56 | NUR ---
INITIALLY WHEN I OFFERED PT HIS NICOTINE PATCH HE REFUSED. PT WAS STANDING IN DOOR WAY REQUESTING TO GO OUT TO SMOKE. OFFERED HIM HIS NICOTINE PATCH AND HE TOOK THE PATCH REMOVED HIS OLD PATCH. PT IS GETTING VERY AGITATED AND UPSET THAT WE ARE NOT ALLOWING HIM TO HAVE A PHONE
--- NOTE | 2018-11-19 14:00 | NUR ---
PSYCHIATRY IS AT THE PT BEDSIDE TALKING TO HIM ABOUT HOW HE IS FEELING. PT IS GETTING AGITATED AND UPSET.
[2018-11-19] MEDS ORDERED: clonazePAM 0.5 MG TAB PO SCH (14:29)
--- NOTE | 2018-11-19 14:30 | NUR ---
Pt restless, & yelling angrily, stating that he will "fuck up everyone in [employer]". Asked pt what is making him upset, pt not responding continue to pace room. Dr Nicolas in unit notified. Received verbal order to give klonopin & seroquel now, & to continue to administer routine ordered meds. Order noted, pharmacist Isaac notified.
[2018-11-19] MEDS ORDERED: QUEtiapine FUMARATE 100 MG TAB PO SCH (14:36)
--- NOTE | 2018-11-19 16:01 | NUR ---
11/19/18 RD INITIAL ASSESSMENT COMPLETED PLEASE REFER TO NUTRITION ASSESSMENT UNDER CARE ACTIVITY FOR ESTIMATED NUTRITIONAL NEEDS. RD RECOMMENDATIONS: 1. RECOMMEND CONTINUE WITH 2GM NA DIET DUE TO HISTORY OF CVA AND HTN. 2. RD WILL F/U 7 DAYS; LOW RISK JYOTHI PARNELL RD
--- NOTE | 2018-11-19 16:23 | NUR ---
PT ASLEEP IN BED, NOTABLE CHEST RISE AND FALL. PT APPEARS IN NO APPARENT DISTRESS. SITTER AT BEDSIDE. WILL CONTINUE TO MONITOR.
[2018-11-19] MEDS ORDERED: GABAPENTIN 300 MG CAP PO SCH (17:00)
--- NOTE | 2018-11-19 17:08 | NUR ---
PT ASLEEP IN BED NOTABLE CHEST RISE AND FALL. NO SIGNS OF PAIN. PT IS STABLE AND AND APPEARS IN NO APPARENT DISTRESS, SITTER AT BEDSIDE. WILL CONTINUE TO MONITOR.
[2018-11-19] MEDS: BRIMONIDINE TARTRATE 0.2% OP 5 ML BTL BOTH EYES SCH ×2 (17:43→17:48)
[2018-11-19] MEDS: GABAPENTIN 600 MG, GABAPENTIN 200 MG PO SCH ×2 (17:45)
[2018-11-19] MEDS: clonazePAM 0.5 MG TAB PO SCH (17:46)
--- NOTE | 2018-11-19 18:02 | NUR ---
Received call from Radha from [facility] requesting for copy of [phone] hold renewal to fax # [phone]. Document faxed to given number per request.
--- NOTE | 2018-11-19 18:15 | NUR ---
PT STANDING IN HALLWAY REQUESTING FOR A PHONE TO MAKE PHONE CALLS.
--- NOTE | 2018-11-19 18:26 | NUR ---
ATIVAN ADMINISTERED. PT WAS BECOMING AGITATED AND WAS REQUESTING TO SPEAK WITH A BUNDLE TIER AND LABELER BECAUSE HE WANTS TO TALK TO THE SENIOR [employer] SYSTEM[employer] ENGINEER GENERALS OFFICE ABOUT [employer].
--- NOTE | 2018-11-19 19:00 | NUR ---
PT IN HALLWAY SCREAMING REQUESTING TO SPEAK TO A SALES PROGRAM COORDINATOR. SECURITY BROUGHT THE PT HIS WALLET HE REQUESTED PT REMOVED A LIST OF PHONE NUMBERS FROM HIS WALLET AND IS USING THE UNIT BLUE PHONE TO MAKE PHONE CALLS. SITTER AT BEDSIDE.
--- NOTE | 2018-11-19 19:19 | NUR ---
ENDORSED FOOD CHECKER NURSE AT PT BEDSIDE. PT ON THE PHONE. PT APPEARS IN NO APPARENT DISTRESS. IV FLUSHED AND PATENT. FALL RISK PROTOCOL IN PLACE. SITTER AT BEDSIDE. ALL SAFETY MEASURES IN PLACE.
--- NOTE | 2018-11-19 19:20 | NUR ---
RECEIVED PATIENT AWAKE ROAMING AROUND INSIDE HIS ROOM. EXPLAINED PLAN OF CARE. 1:1 SITTER. RESPIRATION EVEN AND UNLABORED. ALL PRECAUTIONARY MEASURES APPLIED. WILL CONTINUE TO MONITOR.
[2018-11-19 20:00] VITALS: BP 103/79
--- NOTE | 2018-11-19 21:00 | NUR ---
V/S TAKEN AND RECORDED. SCHEDULE MEDICATION. REFUSED TO TAKE COLACE AND SEROQUEL.
[2018-11-19] MEDS: QUEtiapine FUMARATE 100 MG TAB PO SCH (21:39)
[2018-11-19] MEDS: ATORVASTATIN 20 MG TAB PO SCH (21:40)
--- NOTE | 2018-11-19 22:30 | NUR ---
PATIENT BECOME AGITATED MEDS GIVEN ORDERED. 1: 1 SITTER. CALLED SECURITY FOR SAFETY, PATIENT CALM DOWN AND EXPLAINED ABOUT THE MEDICATION THAT WAS SCHEDULED AT NIGHT TIME. WILL CONTINUE TO MONITOR.
--- NOTE | 2018-11-20 00:03 | NUR ---
Call Center called the following contracted facilities for bed placement. Currently no beds available at this time. [facility], spoke with Baldemar. [facility], spoke with Regino. [facility], spoke with nursing aluminum fabrication supervisor Chong. Requested for us to call back Wednesday when they have more discharges. [facility], spoke with Casandra. Unit is at full capacity. [facility], spoke with Sophia. [facility], spoke with Shubham. Their ED has psych admissions that will leave no beds available for outside admissions.
[2018-11-20] MEDS: ZOLPIDEM 5 MG TAB PO PRN ×2 (00:47→19:37)
--- NOTE | 2018-11-20 01:30 | NUR ---
DR. MICHAEL TALKING TO PATIENT AND START YELLING, TRIED TO CALM DOWN PATIENT AND AT THE END HE LISTENED TO DR. MICHAEL AND CHANGED HIS TONE OF VOICE. SEEN PATIENT SITTING QUIET IN BED AT THIS TIME. 1:1 SITTER AT BESIDE FOR CONSTANT OBSERVATION. ALL PRECAUTIONARY MEASURE APPLIED.
[2018-11-20] MEDS: LORazepam 2 MG/ML VIAL IM/IVP PRN ×5 (02:40→21:39)
--- NOTE | 2018-11-20 03:45 | NUR ---
PATIENT START YELLING AND SCREAMING. CALLED SECURITY FOR SAFETY. DR. MICHAEL NOTIFIED.
--- NOTE | 2018-11-20 04:00 | NUR ---
SEEN PATIENT AWAKE SITTING QUIETLY IN BED . NO SIGN OF SI/HI NOTED AT THIS TIME. 1:1 SITTER AT BEDSIDE. ALL PRECAUTIONARY MEASURES APPLIED. ALL NEEDS ATTENDED.
[2018-11-20] MEDS ORDERED: HALOPERIDOL IM 5 MG/ML VIAL IM SCH (04:15)
[2018-11-20] MEDS: HYDROcodone/APAP 10/325 MG 1 TAB TAB PO PRN ×4 (04:35→19:37)
--- NOTE | 2018-11-20 04:48 | NUR ---
DR. MICHAEL ORDERED HALDOL 5MG IM SHOT. PT ASKED WHAT THE SHOT WAS AND HE SAID I DON'T WANT TO TAKE ANY PSYCH MEDS. PT TOLD BY NURSE THAT IT IS HALDOL AND IT WILL HELP YOU RELAX AND SLEEP. PT REITERATED THAT HE REFUSES TO TAKE HALDOL OR ANY PSYCH MEDS AND THAT IF WE WERE TO TRY AND GIVE IT TO HIM, WE WOULD HAVE TO RESTRAIN HIM. NURSE TOLD PT THAT IF YOU DON'T WANT THE SHOT THAT HE MUST BEHAVE AND QUIET DOWN. NURSE SAID I DON'T WANT TO HAVE TO GIVE YOU A SHOT TO KEEP YOU CALM. PT VERBALIZED UNDERSTANDING AND NURSE ASKED HIM IF HE WOULD BE WILING TO APOLOGIZE TO STAFF FOR HIS BEHAVIOR. PT DID APOLOGIZE FOR HIS BEHAVIOR. HE THEN ASKED FOR NORCO BECAUSE HE SAID HE WAS N A LOT OF PAIN WELL COFFEE . PT GIVEN NORCO AND REQUESTED COFFEE. DR. MICHAEL MADE AWARE OF PT REFUSAL OF IM SHOT. PT IS NOW SITTING ON BED QUIETLY AND WRITING ON PAPER. NURSE SITTING AT DOORWAY.
--- NOTE | 2018-11-20 07:25 | NUR ---
ENDORSEMENT GIVEN TO AM SHIFT NURSE AT BEDSIDE. PATIENT IN STABLE CONDITION.
--- NOTE | 2018-11-20 07:26 | NUR ---
RECEIVED HANDOFF REPORT FROM SOFTWARE LEAD NURSE. PT IS STANDING IN THE HALLWAY ASKING FOR ATIVAN AND NORCO. INFORMED PT OF THE NEXT TIME HE IS ABLE TO RECEIVED THOSE MEDICATIONS
--- NOTE | 2018-11-20 07:35 | NUR ---
PT SCREAMING AND YELLING BECAUSE HE REQUESTED DOUBLE PORTION OF HIS MEAL WITH GLUCERNA SHAKE. CALLED SECURITY BECAUSE THE PATIENT IS VERY AGITATED. INFORMED PT THAT THE DR HAS TO APPROVE THE DOUBLE PORTION MEAL AND THE GLUCERNA SHAKE AND PLACE ORDERS BEFORE HE CAN RECEIVE THOSE.
[2018-11-20 07:50] LABS: ANION GAP 12.2 (8-16); CARBON DIOXIDE 27.7 mmol/L (21-32); CREATININE 1.2 mg/dL (0.7-1.3); POTASSIUM 3.9 mmol/L (3.5-5.1)
--- NOTE | 2018-11-20 08:00 | NUR ---
PT REFUSED ME TO TAKE HIS VITAL SIGNS. PT VERY AGITATED AND YELLING ABOUT WANTING DOUBLE SERVING OF FOOD.
--- NOTE | 2018-11-20 08:03 | NUR ---
PT SITTING EATING HIS BREAKFAST. PT IS TALKING TO HIMSELF AND CURSING
[2018-11-20 08:10] LABS: EOSINOPHILS # (AUTO) 0.1 K/uL (0-0.4); EOSINOPHILS % (AUTO) 3.4 % (0.0-4.0); HEMATOCRIT 41.1 % (36-52); HEMOGLOBIN 14.2 g/dL (12.0-18.0); LYMPHOCYTES # (AUTO) 1.4 K/uL (2.0-11.5); MEAN CORPUSCULAR HEMOGLOBIN 33 pg (27-31); MEAN CORPUSCULAR HGB CONC 35 g/dL (33-37); MEAN CORPUSCULAR VOLUME 94.6 fL (80-94); MONOCYTES # (AUTO) 0.5 K/uL (0.8-1.0); MONOCYTES % (AUTO) 14.1 % (1.7-9.3); NEUTROPHILS # (AUTO) 1.7 K/uL (1.8-7.7); NEUTROPHILS % (AUTO) 45.5 % (42.2-75.2); PLATELET COUNT (AUTO) 89 K/uL (140-450); RED BLOOD CELL COUNT(AUTO) 4.34 MIL/uL (4.20-6.10); RED CELL DISTRIBUTION WIDTH 13.9 % (11.6-13.7); WHITE BLOOD COUNT (AUTO) 3.8 K/uL (4.8-10.8)
[2018-11-20] MEDS: DOCUSATE SODIUM 100 MG GELCAP PO SCH ×2 (08:58→21:00)
[2018-11-20] MEDS: FOLIC ACID 1 MG TAB PO SCH (08:58)
[2018-11-20] MEDS: BACLOFEN 10 MG TAB PO SCH ×3 (08:59→17:42)
[2018-11-20] MEDS: MULTIVITAMIN 1 TAB PO SCH (08:59)
[2018-11-20] MEDS: LISINOPRIL 5 MG TAB PO SCH (08:59)
[2018-11-20] MEDS: BRIMONIDINE TARTRATE 0.2% OP 5 ML BTL BOTH EYES SCH ×3 (09:00→17:50)
[2018-11-20] MEDS ORDERED: GABAPENTIN 300 MG CAP PO SCH (09:00)
[2018-11-20] MEDS: EMTRICITABINE/TENOFOVIR 200-300MG 1 TAB PO SCH (09:00)
[2018-11-20] MEDS: TIMOLOL OP 0.5% 5 ML BTL OP SCH ×2 (09:00→21:13)
[2018-11-20] MEDS: THIAMINE 100 MG TAB PO SCH (09:00)
[2018-11-20] MEDS: SODIUM PHOS / POTASSIUM PHOS 1 PKT PDR PO SCH ×3 (09:01→17:43)
[2018-11-20] MEDS: FAMOTIDINE 20 MG TAB PO SCH ×2 (09:01→20:59)
[2018-11-20] MEDS ORDERED: GABAPENTIN 300 MG CAP ONE (09:01)
[2018-11-20] MEDS: chlordiazePOXIDE 25 MG CAP PO SCH ×3 (09:02→17:43)
[2018-11-20] MEDS: GABAPENTIN 600 MG, GABAPENTIN 200 MG PO SCH ×6 (09:03→17:42)
[2018-11-20] MEDS: clonazePAM 0.5 MG TAB PO SCH ×3 (09:04→17:44)
[2018-11-20] MEDS: VENLAFAXINE XR 75 MG CAPER PO SCH (09:05)
[2018-11-20] MEDS: QUEtiapine FUMARATE 100 MG TAB PO SCH ×2 (09:06→21:00)
--- NOTE | 2018-11-20 09:10 | NUR ---
PULL ALL OF PTS MEDS. BUT HE REFUSED HIS SEROQUEL. IN THE [place] IT ONLY ALLOWED ME TO PULL SOME OF THE GABAPENTIN THAT IS ORDERED, I PULLED WHAT IT ALLOWED ME TO AND ADMINISTERED. PT IS IN BED FALLING ASLEEP, IM GOING TO ADMINISTER WHAT I HAVE AND WAIT TIL HE WAKES UP TO ADMINISTER THE REST LATER.
--- NOTE | 2018-11-20 09:42 | NUR ---
PT IS AWAKE AND SINGING. SITTING UP IN BED. EATING MORE FOOD.
--- NOTE | 2018-11-20 10:32 | NUR ---
PT IN BED SLEEPING. NOTABLE CHEST RISE AND FALL. SITTER AT BEDSIDE, WILL CONTINUE TO MONITOR.
--- NOTE | 2018-11-20 11:58 | NUR ---
PT ASLEEP. NOTABLE CHEST RISE AND FALL. BED IS LOCKED AND IN LOWEST POSITION. FALL RISK PROTOCOL IN PLACE AND SITTER IS AT BEDSIDE. WILL CONTINUE TO MONITOR.
--- NOTE | 2018-11-20 12:00 | NUR ---
PT AWAKE AND COMPLAINING OF ANXIETY PT IS REQUESTING ATIVAN
--- NOTE | 2018-11-20 12:42 | NUR ---
PT AWAKE AND REQUESTING ATIVAN FOR HIS ANXIETY. WILL ADMINISTER ALL AFTERNOON MEDICATIONS AND ASK IF HE WILL ALLOW ME TO TAKE HIS VITALS. PT HAS BOTH MEAL TRAYS AT HIS BEDSIDE HE REQUESTED. PT AMBULATED TO BATHROOM UNASSISTED WITH A STEADY GAIT.
--- NOTE | 2018-11-20 12:44 | NUR ---
ATIVAN ADMINISTERED. PT IS SITTING IN CHAIR QUIETLY TALKING TO HIMSELF
[2018-11-20] MEDS: NICOTINE TRANSD SYS 7 MG/24 HR PATCH TD SCH (13:14)
--- NOTE | 2018-11-20 13:18 | NUR ---
PT SITTING IN CHAIR AT DOORWAY SITTING QUIETLY.
--- NOTE | 2018-11-20 13:44 | NUR ---
ATIVAN REASSESSMENT PT IS SITTING QUIETLY IN CHAIR AT DOOR WAY. PT IS READING MAGAZINES. SITTER AT PT BEDSIDE. PT IS INTERACTING APPROPRIATELY AND NOT USING ANY VULGAR OR FOUL LANGUAGE.
--- NOTE | 2018-11-20 15:29 | NUR ---
PT ASKED TO TAKE A SHOWER. ACCOMPAINED PT TO THE SHOWER, ALLOWED THE PT TO TAKE A 5 MIN SHOWER. PT IS BACK IN HIS ROOM ASKING TO USE THE PHONE TO CALL HIS COUSIN.
[2018-11-20 16:05] VITALS: BP 98/62
--- NOTE | 2018-11-20 16:53 | NUR ---
ATIVAN ADMINISTERED. PT REQUESTED ATIVAN BECAUSE HE WAS STARTING TO FEEL ANXIOUS.
--- NOTE | 2018-11-20 18:19 | NUR ---
ATIVAN REASSESSMENT. PT IS SITTING IN CHAIR IN DOORWAY PT IS REQUESTING TO SPEAK WITH HIS DOCTOR ABOUT INCREASING HIS ATIVAN. RESIDENTS ARE AWARE AND SAID THEY WILL BE BY LATER.
--- NOTE | 2018-11-20 18:21 | NUR ---
PT IS ANXIOUS AND SITTING IN CHAIR IN DOORWAY. IV SITE IS PATENT AND FLUSHED WITH NO SIGNS OF INFILTRATION. PT IS STABLE AND APPEARS IN NO APPARENT DISTRESS. SITTER AT BEDSIDE. WILL CONTINUE TO MONITOR.
--- NOTE | 2018-11-20 18:50 | NUR ---
PT AGITATED AND COMPLAINING THAT HE IS HUNGRY, ORDERED HIM A PEANUT BUTTER AND JELLY SANDWHICH
--- NOTE | 2018-11-20 18:54 | NUR ---
PT STABLE SITTING IN CHAIR IN DOORWAY. IV IS PATENT AND FLUSHED. NO SIGNS OF DISTRESS. SITTER AT BEDSIDE. ALL SAFETY MEASURES ARE IN PLACE.
--- NOTE | 2018-11-20 19:10 | NUR ---
endorsed shift commander nurse at pt bedside. pt is in stable condition and appears in no apparent distress, sitter is at pt bedside.
--- NOTE | 2018-11-20 19:20 | NUR ---
RECEIVED FROM AM RN SITTING IN A CHAIR BY THE DOORWAY. WITH 1:1 SITTER RT 5150 CASE. ABLE TO VERBALIZE NEEDS WELL. VERY LOUD VOICE AND DEMANDING. GETS UPSET WHEN HIS DEMANDS NOT MET. AT THIS POINT HE WANTS HIS ATIVAN IVP BUT NOT TIME YET. WILL TRY AND PACIFY PT AND TALK WITH HIM.
[2018-11-20 19:37] VITALS: BP 100/60
--- NOTE | 2018-11-20 19:40 | NUR ---
PT. AGREED TO TAKE HIS NORCO RT GENERALIZED PAIN PER PT. AND HIS SLEEPING PILL. STATED " I NEED MY BEDTIME MEDICATIONS" PT VERY DEMANDING AND SHOUTING. REQUESTED TO GO BACK TO BED AND SLEEP RT NIGHT TIME. PT. AGREED TO STAY IN BED BUT SITTING DOWN.
--- NOTE | 2018-11-20 20:03 | NUR ---
PT. REFUSED TO GO TO HIS BED AND LAY DOWN. SAT IN CHAIR AND STATED "I WILL WAIT FOR MY OTHER NIGHT TIME MEDICATION" PT. IS AT PRESENT SLEEPING IN AND OUT IN CHAIR. REFUSED TO GO BACK AND LAY DOWN IN HIS BED.
[2018-11-20] MEDS: ATORVASTATIN 20 MG TAB PO SCH (20:59)
--- NOTE | 2018-11-20 21:13 | NUR ---
PT. ASSISTED TO BED. ALLOWED TELE RN TO ASSIST HIM. SITTER 1:1 . ALL P.O. MEDICATIONS ADMINISTERED.
--- NOTE | 2018-11-20 21:42 | NUR ---
PT. WOKE UP AND SHOUTING HE NEEDS HIS ATIVAN IVP. MEDICATED REQUESTED. ENCOURAGED TO GO BACK TO BED. REFUSED. PT. KEEPS SAYING SHIT..SHIT. PT. KEEPS WALKING AROUND HIS ROOM. REFUSED TO GO BACK IN BED. WITH SITTER 1:1 .
--- NOTE | 2018-11-20 22:27 | NUR ---
PT. ASLEEP IN CHAIR. SITTER 1:1.
--- NOTE | 2018-11-21 | NUR ---
PT. IN BED NOW SLEEPING. SITTER 1:1 -
--- NOTE | 2018-11-21 02:36 | NUR ---
SLEEPING STILL. WAKES UP EVERY NOW AND THEN . WITH SITTER 1;1.
--- NOTE | 2018-11-21 04:39 | NUR ---
SLEEPING AT THIS TIME. SITTER 1:1.
--- NOTE | 2018-11-21 05:59 | NUR ---
No vacancy found anywhere , will endorsed to AM shift to continue to look for placement .
--- NOTE | 2018-11-21 06:13 | NUR ---
PT. JUST WOKE UP AND SHOUTING WANTS ATIVAN IVP . INFORMED HIM THAT HE HAD BEEN SLEEPING MOST OF THE NIGHT AND THAT HE JUST WOKE UP NOW. ENCOURAGED TO TAKE A BREAK. GAVE COFFEE AND SNACK AT THIS TIME.
--- NOTE | 2018-11-21 06:25 | NUR ---
PT. SAT DOWN ON SIDE OF BED AND EATING HIS SNACK AND DRINKING COFFEE. QUIET AT THIS TIME.
[2018-11-21 06:36] VITALS: BP 108/62
[2018-11-21] MEDS: LORazepam 2 MG/ML VIAL IM/IVP PRN ×3 (06:41→20:16)
[2018-11-21 06:42] LABS: BASOPHILS % (AUTO) 0.9 % (0.0-2.0); EOSINOPHILS # (AUTO) 0.1 K/uL (0-0.4); EOSINOPHILS % (AUTO) 3.6 % (0.0-4.0); HEMATOCRIT 37.4 % (36-52); HEMOGLOBIN 12.9 g/dL (12.0-18.0); LYMPHOCYTES # (AUTO) 1.2 K/uL (2.0-11.5); LYMPHOCYTES % (AUTO) 38.7 % (20.5-51.1); MEAN CORPUSCULAR HEMOGLOBIN 33 pg (27-31); MEAN CORPUSCULAR HGB CONC 35 g/dL (33-37); MEAN CORPUSCULAR VOLUME 94.4 fL (80-94); MONOCYTES # (AUTO) 0.4 K/uL (0.8-1.0); MONOCYTES % (AUTO) 13.1 % (1.7-9.3); NEUTROPHILS # (AUTO) 1.4 K/uL (1.8-7.7); NEUTROPHILS % (AUTO) 43.7 % (42.2-75.2); PLATELET COUNT (AUTO) 79 K/uL (140-450); RED BLOOD CELL COUNT(AUTO) 3.97 MIL/uL (4.20-6.10); RED CELL DISTRIBUTION WIDTH 14.4 % (11.6-13.7); WHITE BLOOD COUNT (AUTO) 3.2 K/uL (4.8-10.8)
--- NOTE | 2018-11-21 07:21 | NUR ---
PT. SITTING IN CHAIR AWAKE AND ALERT. ENDORSED TO THE AM RN FOR CONTINUITY OF CARE.
--- NOTE | 2018-11-21 07:22 | NUR ---
RECEIVED REPORT FROM PODIATRY ASSISTANT NURSE. PATIENT SITTING DOWN AT BEDSIDE CHAIR. NO DISTRESS NOTED. DENIES ANY PAIN. AAOX3, CALM AT THIS TIME, APPROPRIATE AFFECT. SKIN COLOR APPROPRIATE TO ETHNICITY, WARM TO TOUCH. SKIN INTACT. RESPIRATIONS EVEN, UNLABORED, ON ROOM AIR. IV SITE INTACT, PATENT, ON SALINE LOCK. ABDOMEN SOFT. NON-DISTENDED. SAFETY MEASURES IN PLACE, SITTER AT BEDSIDE. WILL CONTINUE TO MONITOR.
[2018-11-21 07:58] VITALS: BP 96/66
[2018-11-21] MEDS: SODIUM PHOS / POTASSIUM PHOS 1 PKT PDR PO SCH ×3 (08:00→17:00)
--- NOTE | 2018-11-21 08:09 | NUR ---
LATE ENTRY FOR 11/18/18 [address] LIU DATED 11/18/18 STATING PATIENT IS MEDICALLY CLEARED TO [facility], ATTN: HUMBLE. SPOKE WITH HUMBLE OF [facility] PH# [phone] TO INFORM HER THAT PATIENT IS MEDICALLY CLEARED PER DR. LIU.
[2018-11-21] MEDS: VENLAFAXINE XR 75 MG CAPER PO SCH (08:17)
[2018-11-21] MEDS: clonazePAM 0.5 MG TAB PO SCH ×3 (08:17→17:23)
[2018-11-21] MEDS: FOLIC ACID 1 MG TAB PO SCH (08:18)
[2018-11-21] MEDS: THIAMINE 100 MG TAB PO SCH (08:18)
[2018-11-21] MEDS: BACLOFEN 10 MG TAB PO SCH ×3 (08:18→17:24)
[2018-11-21] MEDS: FAMOTIDINE 20 MG TAB PO SCH ×2 (08:18→20:24)
[2018-11-21] MEDS: MULTIVITAMIN 1 TAB PO SCH (08:18)
[2018-11-21] MEDS: chlordiazePOXIDE 25 MG CAP PO SCH ×3 (08:18→17:23)
[2018-11-21] MEDS: EMTRICITABINE/TENOFOVIR 200-300MG 1 TAB PO SCH (08:19)
[2018-11-21] MEDS: QUEtiapine FUMARATE 100 MG TAB PO SCH ×2 (08:19→20:25)
[2018-11-21] MEDS: DOCUSATE SODIUM 100 MG GELCAP PO SCH ×2 (08:19→20:25)
[2018-11-21] MEDS: LISINOPRIL 5 MG TAB PO SCH (08:19)
[2018-11-21] MEDS: TIMOLOL OP 0.5% 5 ML BTL OP SCH ×2 (08:20→20:22)
[2018-11-21] MEDS: BRIMONIDINE TARTRATE 0.2% OP 5 ML BTL BOTH EYES SCH ×3 (08:20→17:21)
--- NOTE | 2018-11-21 08:24 | NUR ---
PATIENT SITTING IN BEDSIDE CHAIR. NO DISTRESS NOTED. DENIES ANY PAIN. SCHEDULED MEDICATIONS DUE GIVEN. WILL CONTINUE TO MONITOR.
[2018-11-21] MEDS: GABAPENTIN 600 MG, GABAPENTIN 200 MG PO SCH ×6 (08:50→17:23)
--- NOTE | 2018-11-21 10:40 | NUR ---
PATIENT LYING DOWN IN BED SLEEPING, AROUSABLE BY VOICE. NO DISTRESS NOTED. CONDITION UNCHANGED. SITTER AT BEDSIDE. WILL CONTINUE TO MONITOR.
[2018-11-21] MEDS: NICOTINE TRANSD SYS 7 MG/24 HR PATCH TD SCH (13:31)
--- NOTE | 2018-11-21 13:36 | NUR ---
PATIENT SITTING IN BED WITH LUNCH TRAY IN FRONT. NO DISTRESS NOTED. DENIES ANY PAIN. SCHEDULED MEDICATIONS DUE GIVEN. WILL CONTINUE TO MONITOR. SITTER AT BEDSIDE.
--- NOTE | 2018-11-21 14:45 | NUR ---
PATIENT SITTING DOWN IN BED. NO DISTRESS NOTED. COMPLAINS OF ANXIOUS. ATIVAN IVP GIVEN PER MD ORDERS. SITTER AT BEDSIDE. WILL CONTINUE TO MONITOR.
--- NOTE | 2018-11-21 15:30 | NUR ---
TYRON FROM [facility] CALL CENTER CALLED AND ASKED IF PATIENT STILL REQUIRES A PLACEMENT. NOTIFIED THAT 5150 HOLD EXPIRES TONIGHT AND THAT PSYCH EVAL WAS PENDING TODAY. PER TYRON FAX OVER NEW HOLD IF PSYCH CONTINUES HOLD TONIGHT. FAX:[phone]. PHONE:[phone]
[2018-11-21 16:00] VITALS: BP 95/65
--- NOTE | 2018-11-21 17:30 | NUR ---
PATIENT LYING DOWN IN BED. NO DISTRESS NOTED. DENIES ANY PAIN. SCHEDULED MEDICATIONS DUE GIVEN. WILL CONTINUE TO MONITOR.
--- NOTE | 2018-11-21 19:25 | NUR ---
RECEIVED REPORT FROM JOSEE DAVIDSON AT BEDSIDE FOR CONTINUITY OF CARE, PT IN STABLE CONDITION.
--- NOTE | 2018-11-21 19:25 | NUR ---
GAVE REPORT TO APPLIED RESEARCHER NURSE FOR CONTINUITY OF CARE. PATIENT IN STABLE CONDITION.
--- NOTE | 2018-11-21 20:00 | NUR ---
PT SITTING UP IN BED THEN PACING ROOM REQUESTING ATIVAN FOR ANXIETY. PT GIVEN ATIVAN IVP/PRN ORDERED. V/S FOLLOWS T 97.8 P 78 R 18 B/P 104/66 02 97% ON ROOM AIR.
[2018-11-21] MEDS: ATORVASTATIN 20 MG TAB PO SCH (20:24)
--- NOTE | 2018-11-21 21:00 | NUR ---
PT GIVEN DUE MEDS OF PEPCID AND ZOCOR, BUT REFUSED COLACE AND SEROQUEL.
--- NOTE | 2018-11-21 21:30 | NUR ---
DR. FOX AT BEDSIDE FOR PSYCH EVALUATION, DR. FOX MADE AWARE THAT PT REFUSING PSYCH MEDS (SEROQUEL).
--- NOTE | 2018-11-21 22:30 | NUR ---
PT SAID HE WASNT FEELING TO WELL, PT ENCOURAGE TO LAY DOWN AND REST PT V/S FOLLOWS T 97.7 P 67 R 18 B/P 98/64. WILL CONTINUE TO MONITOR PT FOR PAIN AND DISCOMFORT. SITTER AT BEDSIDE.
[2018-11-22] VITALS: BP 99/75
[2018-11-22] MEDS: ZOLPIDEM 5 MG TAB PO PRN (00:48)
[2018-11-22] MEDS: LORazepam 2 MG/ML VIAL IM/IVP PRN (00:56)
--- NOTE | 2018-11-22 01:03 | NUR ---
PT SITTING ON BED WITH C/O OF INSOMNIA. PT ALSO IS DRINKING COFFEE AT THIS TIME. PT C/O OF INSOMNIA AND IS REQUESTING AMBIEN AND ATIVAN FOR ANXIETY. PT GIVEN MEDS REQUESTED AND ENCOURAGED TO LAY DOWN IN BED IF HE IS TRYING TO RELAX AND GOT TO SLEEP. PT DECLINED TO LAY DOWN AND CONTINUE D TO SIT UP IN BED. PT ENCOURAGED TO LAY DOWN BECAUSE HE IS A FALLS RISK AND HAS TAKEN 2 MEDICATION THAT WILL MAKE HIM DROWSY. PT CONTINUED TO DECLINE TO LAY DOWN, PT BED IN LOW POSITION AND SITTER AT BEDSIDE.
--- NOTE | 2018-11-22 03:11 | NUR ---
spoke to Tim charge nurse , recieved the new 5150 notified her ,at this time there are no beds available will contnue to look for placement.
--- NOTE | 2018-11-22 04:00 | NUR ---
PT SLEEPING NO S/S OF PAIN OR DISTRESS 1 TO 1 SITTER AT BEDSIDE.
--- NOTE | 2018-11-22 06:30 | NUR ---
PT ASKING FOR ATIVAN, WHICH WAS JUST D/C'D. PT UPSET AND ASKED TO SPEAK WITH PRIMARY MD. THEY SAID THAT THEY WILL REEVALUATE DURING ROUNDS , TO SPEAK WITH MD AFTER ROUNDS, PT VERBALIZED UNDERSTANDING.
--- NOTE | 2018-11-22 06:42 | NUR ---
DR. FOX NOTES TO CONTINUE 5150 HOLD WELL 1 TO 1 SITTER.
--- NOTE | 2018-11-22 07:10 | NUR ---
REPORT GIVEN TO AARON RN AT BEDSIDE FOR CONTINUITY OF CARE, PT IN STABLE CONDITION.
--- NOTE | 2018-11-22 07:12 | NUR ---
RECEIVED HANDOFF REPORT FROM DUCT INSTALLER NURSE. PT IS IN HIS ROOM SITTING QUIETLY. SITTER IS AT THE PATIENTS BEDSIDE. WILL CONTINUE TO MONITOR.
[2018-11-22 07:23] LABS: ANION GAP 9.2 (8-16); CARBON DIOXIDE 31.4 mmol/L (21-32); CREATININE 1.4 mg/dL (0.7-1.3); POTASSIUM 4.6 mmol/L (3.5-5.1)
[2018-11-22 07:35] LABS: MAGNESIUM 2.2 mg/dL (1.8-2.4); PHOSPHORUS 3.2 mg/dL (2.5-4.9)
[2018-11-22 07:42] LABS: EOSINOPHILS # (AUTO) 0.1 K/uL (0-0.4); HEMATOCRIT 41.5 % (36-52); HEMOGLOBIN 14.4 g/dL (12.0-18.0); LYMPHOCYTES # (AUTO) 1.2 K/uL (2.0-11.5); LYMPHOCYTES % (AUTO) 40.7 % (20.5-51.1); MEAN CORPUSCULAR HEMOGLOBIN 33 pg (27-31); MEAN CORPUSCULAR HGB CONC 35 g/dL (33-37); MEAN CORPUSCULAR VOLUME 94.2 fL (80-94); MONOCYTES # (AUTO) 0.3 K/uL (0.8-1.0); MONOCYTES % (AUTO) 10.2 % (1.7-9.3); NEUTROPHILS # (AUTO) 1.3 K/uL (1.8-7.7); NEUTROPHILS % (AUTO) 44.1 % (42.2-75.2); PLATELET COUNT (AUTO) 92 K/uL (140-450)
[2018-11-22 08:29] VITALS: BP 104/67
[2018-11-22] MEDS ORDERED: HYDROcodone/APAP 7.5/325 MG 1 TAB PO PRN (08:50)
[2018-11-22] MEDS: QUEtiapine FUMARATE 100 MG TAB PO SCH ×2 (09:00→21:00)
[2018-11-22] MEDS: EMTRICITABINE/TENOFOVIR 200-300MG 1 TAB PO SCH ×2 (09:00→09:43)
[2018-11-22] MEDS ORDERED: GABAPENTIN 100 MG CAP ONE (09:11)
[2018-11-22] MEDS: SODIUM PHOS / POTASSIUM PHOS 1 PKT PDR PO SCH ×3 (09:22→18:03)
[2018-11-22] MEDS: VENLAFAXINE XR 75 MG CAPER PO SCH (09:23)
[2018-11-22] MEDS: FAMOTIDINE 20 MG TAB PO SCH ×2 (09:23→21:25)
[2018-11-22] MEDS: GABAPENTIN 600 MG, GABAPENTIN 200 MG PO SCH ×6 (09:23→18:04)
[2018-11-22] MEDS: DOCUSATE SODIUM 100 MG GELCAP PO SCH ×2 (09:24→21:27)
[2018-11-22] MEDS: BACLOFEN 10 MG TAB PO SCH ×3 (09:24→18:04)
[2018-11-22] MEDS: MULTIVITAMIN 1 TAB PO SCH (09:25)
[2018-11-22] MEDS: LISINOPRIL 5 MG TAB PO SCH (09:25)
[2018-11-22] MEDS: chlordiazePOXIDE 25 MG CAP PO SCH ×3 (09:25→18:04)
[2018-11-22] MEDS: TIMOLOL OP 0.5% 5 ML BTL OP SCH ×2 (09:26→21:38)
[2018-11-22] MEDS: clonazePAM 0.5 MG TAB PO SCH ×3 (09:27→18:05)
[2018-11-22] MEDS: BRIMONIDINE TARTRATE 0.2% OP 5 ML BTL BOTH EYES SCH ×3 (09:38→17:00)
--- NOTE | 2018-11-22 09:40 | NUR ---
PT COMPLAINED OF PAIN AND REQUESTED HIS PAIN MEDICATION. GAVE PT PRN NORCO. PER ORDERS. SITTER AT BEDSIDE. WILL CONTINUE TO MONITOR.
--- NOTE | 2018-11-22 11:15 | NUR ---
PT RESTING IN BED. APPEARS IN NO APPARENT DISTRESS, WILL CONTINUE TO MONITOR. ALL SAFETY MEASURES IN PLACE. SITTER AT BEDSIDE.
[2018-11-22] MEDS: NICOTINE TRANSD SYS 7 MG/24 HR PATCH TD SCH (13:00)
--- NOTE | 2018-11-22 14:30 | NUR ---
PT IS STANDING IN DOORWAY REQUESTING FOR PAIN MEDICATIONS FOR HIS PAIN. SITTER AT BEDSIDE. WILL CONTINUE TO MONITOR.
--- NOTE | 2018-11-22 14:33 | NUR ---
[facility] chart is pending review.
[2018-11-22] MEDS: HYDROcodone/APAP 10/325 MG 1 TAB TAB PO PRN ×2 (14:36→15:44)
[2018-11-22] MEDS ORDERED: HYDROcodone/APAP 10/325 MG 1 TAB TAB PO PRN ×2 (15:10→16:00)
--- NOTE | 2018-11-22 15:45 | NUR ---
PT COMPLAINING OF SEVERE BACK PAIN. DR ORTEGA AT PT BEDSIDE AND PRESCRIBED THE PT A ORDER FOR NORCO FOR BREAKTHROUGH PAIN. I VERIFIED WITH ABOUT ADMINISTERING NORCO BECAUSE HE RECEIVED THE SAME DOSE 60 MINUTES AGO. APPROVED FOR PT TO RECEIVE SECOND DOSE.
[2018-11-22] MEDS ORDERED: GABAPENTIN 300 MG CAP PO SCH (17:00)
--- NOTE | 2018-11-22 18:12 | NUR ---
ADMINISTERED SOME MEDICATIONS LATE. I ACCIDENTLY PULLED ONLY 1 LIBRIUM INSTEAD OF 2, HAD TO WAIT FOR MAISHA FROM PHARMACY TO HELP ME FIX MY MISTAKE.
[2018-11-22 18:19] VITALS: BP 108/86
--- NOTE | 2018-11-22 18:43 | NUR ---
PT IS SITTING AT EDGE OF BED EATING DINNER. PT APPEARS STABLE AND IN NO APPARENT DISTRESS. SITTER AT BEDSIDE.
--- NOTE | 2018-11-22 19:03 | NUR ---
ENDORSED NIGHTSHIFT NURSE AT PT BEDSIDE. PT IS AWAKE STANDING IN DOOR WAY. SITTER AT BEDSIDE. PT IS STABLE AND APPEARS IN NO APPARENT DISTRESS.
--- NOTE | 2018-11-22 19:05 | NUR ---
RECD. STANDING AT THE DOOR, A/OX3, RESPIRATION EVEN AND UNLABORED. IV SALINE LOCK AT THE RIGHT FOREARM G22, PATENT AND INTACT. SEEMS VERY DROWSY BUT SEEMS TO FIGHT IT, DRINKING COFFEE TO KEEP AWAKE. REQUESTING FOR A COPY OF HIS 5150, EXPLAINED NURSES ARE NOT ALLOWED TO GIVE PATIENT A COPY. STATED HE HAS NOT PLAN OF HURTING HIMSELF, NOR FEELING DEPRESSED ONLY HE FEELS TIRED RIGHT NOW. DENIES PAIN 0/10.
--- NOTE | 2018-11-22 19:20 | NUR ---
WENT BACK TO BED AND SIT, READING SOME PAPERS.
--- NOTE | 2018-11-22 19:30 | NUR ---
Patient's Plan of Care was discussed and reviewed with ESTELLA: FARHAT
--- NOTE | 2018-11-22 19:35 | NUR ---
REQUESTED FOR COFFEE, DECAF GIVEN. WENT BACK TO BED AND SIT TO DRINK COFFEE BUT FALLING ASLEEP WHILE DRINKING. REMINDED THAT HE IS ALREADY FALLING ASLEEP THAT HE MIGHT FALL. STARTED TO EAT BREAD WITH THE COFFEE. WILL CONTINUE TO MONITOR BEING THE NURSE SITTER FOR THIS PATIENT.
--- NOTE | 2018-11-22 20:00 | NUR ---
FINISHED EATING, REQUESTING FOR HIS PAIN MEDICATION. INFORMED THAT IT IS NOT YET DUE. AMBULATED TO BR AND SCRATCH HIS BACK AGAINST THE LOWER BOARD OF THE OTHER BED. BACK TO BED AFTER A WHILE, SITS AND OCCASIONALLY REMINDED THAT HE IS ALMOST FALLING, VERY DROWSY BUT REFUSED TO LAY IN BED.
--- NOTE | 2018-11-22 20:15 | NUR ---
DROPPED HIS PITCHER WITH ICE AND SUPPLEMENT. INSTRUCTED TO GO TO B ED BECAUSE HE IS DROWSY, DID NOT LISTENED INSTEAD GO TO BEDSIDE TABLE AND STARTED EATING HIS LEFT OVER OF HIS DINNER.
--- NOTE | 2018-11-22 20:42 | NUR ---
GOES TO HIS BED AND LAY DOWN AND FALL ASLEEP AT ONCE.
--- NOTE | 2018-11-22 21:00 | NUR ---
WOKE UP AND DRINKS HIS SUPPLEMENT. WANTS TO WATCH TV, EXPLAINED THERE'S NO TV, 5150 NOT ALLOWED TO WATCH TV. DID NOT GET UPSET NOR AGITATED.
[2018-11-22] MEDS: ATORVASTATIN 20 MG TAB PO SCH (21:26)
--- NOTE | 2018-11-22 21:50 | NUR ---
WENT TO BED AND FALL ASLEEP.
[2018-11-23] VITALS: BP 94/57
--- NOTE | 2018-11-23 01:15 | NUR ---
WOKE UP FROM SLEEP. SITS ON THE BED. NO AGITATION NOTED.
[2018-11-23] MEDS: HYDROcodone/APAP 10/325 MG 1 TAB TAB PO PRN ×2 (01:18→06:35)
--- NOTE | 2018-11-23 03:58 | NUR ---
Rosa Isela arredondo from [facility] , still stated there are no vacancy at this time.
--- NOTE | 2018-11-23 04:00 | NUR ---
STILL SLEEPING COMFORTABLY IN BED.
--- NOTE | 2018-11-23 06:15 | NUR ---
KINDERGARTEN PARAPROFESSIONAL CAME AND DRAW BLOOD, COOPERATIVE.
[2018-11-23 07:11] LABS: BASOPHILS % (AUTO) 0.4 % (0.0-2.0); EOSINOPHILS # (AUTO) 0.1 K/uL (0-0.4); EOSINOPHILS % (AUTO) 2.3 % (0.0-4.0); HEMATOCRIT 36.8 % (36-52); HEMOGLOBIN 12.7 g/dL (12.0-18.0); LYMPHOCYTES # (AUTO) 1.5 K/uL (2.0-11.5); LYMPHOCYTES % (AUTO) 25.5 % (20.5-51.1); MEAN CORPUSCULAR HEMOGLOBIN 32 pg (27-31); MEAN CORPUSCULAR HGB CONC 34 g/dL (33-37); MEAN CORPUSCULAR VOLUME 93.8 fL (80-94); MONOCYTES # (AUTO) 0.7 K/uL (0.8-1.0); MONOCYTES % (AUTO) 12.2 % (1.7-9.3); NEUTROPHILS # (AUTO) 3.5 K/uL (1.8-7.7); NEUTROPHILS % (AUTO) 59.6 % (42.2-75.2); PLATELET COUNT (AUTO) 89 K/uL (140-450); RED BLOOD CELL COUNT(AUTO) 3.93 MIL/uL (4.20-6.10); RED CELL DISTRIBUTION WIDTH 14.1 % (11.6-13.7); WHITE BLOOD COUNT (AUTO) 5.9 K/uL (4.8-10.8)
[2018-11-23 07:22] LABS: ANION GAP 10.4 (8-16); CARBON DIOXIDE 29.4 mmol/L (21-32); CREATININE 1.4 mg/dL (0.7-1.3); POTASSIUM 3.8 mmol/L (3.5-5.1)
--- NOTE | 2018-11-23 07:22 | NUR ---
SITTING COMFORTABLY IN BED, DRINKING COFFEE. NO AGITATION NOTED DURING SHIFT. CONDITION REMAIN STABLE. NEW SITTER MONITORING PATIENT. ENDORSED TO AM NURSE SHIFT NURSE FOR CONTINUITY OF CARE.
[2018-11-23 07:27] LABS: MAGNESIUM 2.3 mg/dL (1.8-2.4); PHOSPHORUS 3.2 mg/dL (2.5-4.9)
--- NOTE | 2018-11-23 07:52 | NUR ---
RECEIVED REPORT FROM PM NURSE AT THE BEDSIDE. PT STANDING AT THE DOOR. PT WITH SITTER ON HOLD. HAS IV ACCESS ON RT FA, 22 G, SL. INTRODUCED SELF TO THE PATIENT. PT WAS CALM AND NO SIGN OF DISTRESS NOTED. WILL CONTINUE TO MONITOR PT.
[2018-11-23 07:56] VITALS: BP 97/63
[2018-11-23] MEDS: VENLAFAXINE XR 75 MG CAPER PO SCH ×2 (09:00→09:52)
[2018-11-23] MEDS: LISINOPRIL 5 MG TAB PO SCH ×2 (09:00→09:52)
[2018-11-23] MEDS: DOCUSATE SODIUM 100 MG GELCAP PO SCH ×3 (09:00→21:16)
[2018-11-23] MEDS: TIMOLOL OP 0.5% 5 ML BTL OP SCH ×2 (09:50→14:28)
[2018-11-23] MEDS: GABAPENTIN 600 MG, GABAPENTIN 200 MG PO SCH ×6 (09:50→17:39)
[2018-11-23] MEDS: BRIMONIDINE TARTRATE 0.2% OP 5 ML BTL BOTH EYES SCH ×3 (09:51→17:38)
[2018-11-23] MEDS: SODIUM PHOS / POTASSIUM PHOS 1 PKT PDR PO SCH ×3 (09:51→17:39)
[2018-11-23] MEDS: FAMOTIDINE 20 MG TAB PO SCH ×2 (09:52→21:12)
[2018-11-23] MEDS: BACLOFEN 10 MG TAB PO SCH ×3 (09:53→17:39)
[2018-11-23] MEDS: EMTRICITABINE/TENOFOVIR 200-300MG 1 TAB PO SCH (09:54)
[2018-11-23] MEDS: QUEtiapine FUMARATE 100 MG TAB PO SCH ×2 (09:54→21:00)
[2018-11-23] MEDS: MULTIVITAMIN 1 TAB PO SCH (09:54)
[2018-11-23] MEDS: clonazePAM 0.5 MG TAB PO SCH ×4 (09:57→18:34)
--- NOTE | 2018-11-23 10:10 | NUR ---
ADMINISTERED MEDS TO PT ORDERED. REFUSED HIS LISINOPRIL, TRUVADA, EFFEXOR MEDICATION . PT CALM, ASKING FOR HIS NORCO. INFORMED HIM THAT WILL MEDICATE WITH PAIN MEDS AT HIS DUE TIME. VERBALIZED UNDERSTANDING. WILL CONTINUE TO MONITOR PT.
--- NOTE | 2018-11-23 11:03 | NUR ---
CHECKED ON THE PT. BP 88/75, ADMINISTERED CLONAZEPAM IN THE MORNING. PT ASKING FOR HIS PAIN MED, INFORMED HIM THAT HIS BP IS VERY LOW AND PERCOCET MIGHT DROP IT EVEN MORE, WHICH CAN CAUSE HARM TO THE PT. PT TO TAKE THE NAP. INFORMED SITTER AT BEDSIDE TO CLOSELY MONITOR PT IS DROWSY AND RISK FOR FALL. ASKED PT TO SIT DOWN, PT STANDING UP PT STATES HIS BP WILL DROP DOWN. PT SITTING ON HIS BED. WILL CONTINUE TO MONITOR PT.
[2018-11-23] MEDS: NICOTINE TRANSD SYS 7 MG/24 HR PATCH TD SCH (13:00)
--- NOTE | 2018-11-23 13:26 | NUR ---
CHECKED ON PT. ASLEEP AT THIS TIME. NO SIGN OF DISTRESS NOTED. PT WITH 1:1 sitter. WILL CONTINUE TO MONITOR PT.
--- NOTE | 2018-11-23 14:13 | NUR ---
CHECKED ON PT. VS RECORDED VS BP 95/64, 02 98% ON RA, RR 16, HR 75. PT EATING HIS LUNCH AT THIS TIME. PT ASKING FOR HIS PAIN MEDS, INFORMED THAT HE IS TOO DROWSY TO GET PAIN MEDS AT THIS TIME. PT UPSET, USING FOUL LANGUAGE. SITTER AT THE BEDSIDE. INFORMED PT TO STAY , TAKE HIS LUNCH. WILL MEDICATE HIM WITH PAIN MEDS LATER ORDERED IF VS ARE STABLE. PT EATING HIS LUNCH. WILL CONTINUE TO MONITOR PT.
--- NOTE | 2018-11-23 14:17 | NUR ---
Chart faxed to [facility] for review.
--- NOTE | 2018-11-23 14:39 | NUR ---
ADMINISTERED MEDS TO PT ORDERED. UPDATED PT ON HIS VS , INFORMED ABOUT THE PARAMETERS TO ADMINISTER PERCOCET . MD NOTIFIED OF THE PTS CURRENT VS. NO SIGN OF DISTRESS NOTED. PT REFUSED HIS NICOTINE TRANSDERMAL PATCH . SITTER AT THE BEDSIDE. WILL CONTINUE TO MONITOR PT.
[2018-11-23 16:00] VITALS: BP 88/61
--- NOTE | 2018-11-23 17:30 | NUR ---
DR. FELIPE SAW THE PT . STATES WILL PROBABLY DISCONTINUE HIS 5150 HOLD TOMORROW AND DISCHARGE HOME. WILL RE-EVALUATE THE PT AGAIN TOMORROW AND PLAN THE DISCHARGE PLAN. WILL CONTINUE TO MONITOR PT.
--- NOTE | 2018-11-23 17:52 | NUR ---
ADMINISTERED MEDS TO PT ORDERED. BP 87/55, AT THIS TIME. HELD THE CLONAZEPAM BECAUSE OF THE LOW BLOOD PRESSURE. PT STATES WILL TAKE MEDICATION LATER AFTER EATING HIS DINNER. WILL MONITOR VS AGAIN. PT EATING HIS DINNER AT THIS TIME.
--- NOTE | 2018-11-23 18:39 | NUR ---
CHECKED IN PT . ASKING FOR HIS CLONAZEPAM. PT STATES HE FINISHED EATING HIS DINNER. INFORMED PT THAT HE STILL APPEARS DROWSY. STATES HE IS THINKING SOMETHING, NOT DROWSY. PT STATES HE WANTS HIS MEDS. ADMINISTERED HIS CLONAZEPAM, PUT BACK TO HIS BED. WILL CONTINUE TO MONITOR PT.
--- NOTE | 2018-11-23 19:15 | NUR ---
ENDORSED PT TO PM NURSE AT BEDSIDE. PT IN STABLE CONDITION.
--- NOTE | 2018-11-23 19:16 | NUR ---
RECD. RESTING IN BED, SLEEPING COMFORTABLY, SNORING. RESPIRATION EVEN AND UNLABORED. IV SALINE LOCK AT THE RIGHT FOREARM G20, PATENT AND INTACT. SAFETY MEASURES ENFORCED. SIDE RAILS PADDED FOR SEIZURE PRECAUTION. WILL CONTINUE TO MONITOR FOR SAFETY BEING THE NURSE SITTER FOR THIS SHIFT. NO APPEARANCE OF PAIN NOTED 0/10.
--- NOTE | 2018-11-23 20:30 | NUR ---
STILL SLEEPING COMFORTABLY IN BED. NO RESPIRATORY DISTRESS NOTED.
[2018-11-23] MEDS: ATORVASTATIN 20 MG TAB PO SCH (21:14)
--- NOTE | 2018-11-23 22:00 | NUR ---
DISCUSSED AND REVIEWED FOX FARMER WITH FARHAT SORIA.
[2018-11-23] MEDS: oxyCODONE/APAP 5/325 MG 1 TAB TAB PO PRN (23:52)
[2018-11-24] VITALS: BP 104/65
--- NOTE | 2018-11-24 | NUR ---
AWAKE, SITTING ON BED, REQUESTED FOR COFFEE. NO AGITATION NOTED.
--- NOTE | 2018-11-24 01:30 | NUR ---
SLEEPING COMFORTABLY IN BED.
[2018-11-24] MEDS ORDERED: ZOLPIDEM 5 MG TAB ONE (02:03)
--- NOTE | 2018-11-24 05:55 | NUR ---
AWAKE, COMPLAINING OF THE COLDNESS OF THE ROOM, NO TV, NO RADIO. EXPLAINED IT IS THAT WAY FOR 5150, ROOMS ARE USUALLY EMPTY OF TV, RADIO AND PHONES. SPEAKING BAD WORDS.
[2018-11-24] MEDS: oxyCODONE/APAP 5/325 MG 1 TAB TAB PO PRN (05:59)
--- NOTE | 2018-11-24 07:08 | NUR ---
NEW SITTER MONITORING PATIENT, KEEPS ON VERBALIZING HE WANTS TO GO HOME TODAY, ALSO TOLD DR. JONES. WILL ENDORSED TO AM NURSE FOR CONTINUITY OF CARE.
--- NOTE | 2018-11-24 07:19 | NUR ---
ENDORSED TO AM SHIFT NURSE FOR CONTINUITY OF CARE.
[2018-11-24 07:56] LABS: ANION GAP 10.9 (8-16); CARBON DIOXIDE 29.2 mmol/L (21-32); CREATININE 1.4 mg/dL (0.7-1.3); POTASSIUM 4.1 mmol/L (3.5-5.1)
[2018-11-24 07:59] LABS: MAGNESIUM 2.3 mg/dL (1.8-2.4); PHOSPHORUS 2.7 mg/dL (2.5-4.9)
[2018-11-24 08:30] LABS: BASOPHILS % (AUTO) 0.5 % (0.0-2.0); EOSINOPHILS # (AUTO) 0.1 K/uL (0-0.4); EOSINOPHILS % (AUTO) 2.5 % (0.0-4.0); HEMOGLOBIN 14.5 g/dL (12.0-18.0); LYMPHOCYTES % (AUTO) 21.1 % (20.5-51.1); MEAN CORPUSCULAR HEMOGLOBIN 33 pg (27-31); MEAN CORPUSCULAR HGB CONC 34 g/dL (33-37); MEAN CORPUSCULAR VOLUME 94.9 fL (80-94); MONOCYTES # (AUTO) 0.4 K/uL (0.8-1.0); MONOCYTES % (AUTO) 8.5 % (1.7-9.3); NEUTROPHILS # (AUTO) 3.1 K/uL (1.8-7.7); NEUTROPHILS % (AUTO) 67.4 % (42.2-75.2); PLATELET COUNT (AUTO) 99 K/uL (140-450); RED BLOOD CELL COUNT(AUTO) 4.43 MIL/uL (4.20-6.10); RED CELL DISTRIBUTION WIDTH 14.4 % (11.6-13.7); WHITE BLOOD COUNT (AUTO) 4.7 K/uL (4.8-10.8)
[2018-11-24] MEDS ORDERED: ALPOS BOTH EYES (08:38)
[2018-11-24] MEDS ORDERED: NICO1PAT64 TD (08:38)
[2018-11-24] MEDS ORDERED: EFFXR75 PO (08:38)
[2018-11-24] MEDS ORDERED: QUET100T44 PO (08:38)
[2018-11-24] MEDS ORDERED: MULT-405 PO (08:38)
[2018-11-24] MEDS ORDERED: CLON0.5T11 PO (08:38)
[2018-11-24] MEDS ORDERED: GABA400C PO (08:54)
[2018-11-24] MEDS ORDERED: EFAV1TAB PO (08:54)
[2018-11-24] MEDS ORDERED: clonazePAM 0.5 MG TAB PO SCH (09:00)
[2018-11-24] MEDS: VENLAFAXINE XR 75 MG CAPER PO SCH (09:00)
[2018-11-24] MEDS: LISINOPRIL 5 MG TAB PO SCH (09:00)
[2018-11-24] MEDS: DOCUSATE SODIUM 100 MG GELCAP PO SCH (09:00)
[2018-11-24] MEDS: EMTRICITABINE/TENOFOVIR 200-300MG 1 TAB PO SCH (09:00)
[2018-11-24] MEDS: SODIUM PHOS / POTASSIUM PHOS 1 PKT PDR PO SCH (09:44)
[2018-11-24] MEDS: QUEtiapine FUMARATE 100 MG TAB PO SCH (09:44)
[2018-11-24] MEDS: MULTIVITAMIN 1 TAB PO SCH (09:44)
[2018-11-24] MEDS: BACLOFEN 10 MG TAB PO SCH (09:45)
[2018-11-24] MEDS: BRIMONIDINE TARTRATE 0.2% OP 5 ML BTL BOTH EYES SCH (09:51)
[2018-11-24] MEDS: TIMOLOL OP 0.5% 5 ML BTL OP SCH (09:51)
[2018-11-24] MEDS: GABAPENTIN 600 MG, GABAPENTIN 200 MG PO SCH ×2 (09:59)
[2018-11-24] MEDS: FAMOTIDINE 20 MG TAB PO SCH (09:59)
[2018-11-24] MEDS ORDERED: oxyCODONE/APAP 5/325 MG 1 TAB TAB PO PRN (10:00)
--- NOTE | 2018-11-24 10:30 | NUR ---
PT TOOK THE SHOWER OKAY WITH IT. PT TO BE DISCHARGED TODAY. WILL CONTINUE TO MONITOR PT.
--- NOTE | 2018-11-24 11:35 | NUR ---
PT GIVEN HIS DISCHARGE INSTRUCTION AND THE DC PACKET. PROVIDED WITH THE PAIN MEDS PRESCRIPTION. DISCONTINUED HIS IV SITE. PAGED SECURITY FOR THE BELONGINGS. WAITING FOR THE BELONGINGS. PT STABLE , NO SUICIDAL IDEATION EXPRESSED AT THIS TIME. STATES WILL GO HOME IN [place]. PT IS STABLE.
--- NOTE | 2018-11-24 11:45 | NUR ---
PT DISCHARGED TO HOME WITH SELF CARE. NO DISTRESS NOTED. CALM AND COMMUNICATING WELL. GAVE ALL HIS BELONGINGS BY THE SECURITY PERSONNEL. PT PROVIDED WITH THE PAIN MEDS PRESCRIPTION AND ALL HIS DISCHARGE PAPERS . PT WALKED HIMSLEF OUT OF THE HOSPITAL. PT STABLE. WILL CONTINUE TO MONITOR PT.
== END 2018-11-24 11:45 | disposition home or self-care (01) | DRG 812 ==
LOC: MED 23:55 → MTU 11-16 06:28
PROVIDERS: ADMIT General Practice; ATTEND General Practice
DX: T43.621A Poisoning by amphetamines, accidental (unintentional), initial encounter (principal); N17.0 Acute kidney failure with tubular necrosis; G92 Toxic encephalopathy; D70.2 Other drug-induced agranulocytosis; E87.1 Hypo-osmolality and hyponatremia; E83.39 Other disorders of phosphorus metabolism; I69.354 Hemiplegia and hemiparesis following cerebral infarction affecting left non-dominant side; D69.59 Other secondary thrombocytopenia; T51.91XA Toxic effect of unspecified alcohol, accidental (unintentional), initial encounter; K29.70 Gastritis, unspecified, without bleeding; F10.239 Alcohol dependence with withdrawal, unspecified; E87.6 Hypokalemia; B19.20 Unspecified viral hepatitis C without hepatic coma; S61.512A Laceration without foreign body of left wrist, initial encounter; S61.511A Laceration without foreign body of right wrist, initial encounter; T50.905A Adverse effect of unspecified drugs, medicaments and biological substances, initial encounter; F32.9 Major depressive disorder, single episode, unspecified; G89.29 Other chronic pain; F17.210 Nicotine dependence, cigarettes, uncomplicated; R45.851 Suicidal ideations; R07.89 Other chest pain; Y90.0 Blood alcohol level of less than 20 mg/100 ml; G40.909 Epilepsy, unspecified, not intractable, without status epilepticus; I10 Essential (primary) hypertension; F41.9 Anxiety disorder, unspecified; H40.9 Unspecified glaucoma; Z91.5 Personal history of self-harm; Z59.0 Homelessness; Z88.8 Allergy status to other drugs, medicaments and biological substances; Y92.89 Other specified places as the place of occurrence of the external cause; Z79.899 Other long term (current) drug therapy
CPT/HCPCS: 36415; 70450; 71045; 73562; 80048; 80053; 80305; 81003; 82150; 83036; 83690; 83735; 83880; 84100; 84439; 84443; 84484; 85025; 85610; 85730; 86360; 87040; 87081; 87086; 93005; 96361; 96374; 97116; 99285; A9153; G0480; G0482; J1630; J1644; J2060; J2310; J3411; J3475; J3490; J7030; Q0092

== ENCOUNTER 2018-12-01 09:56 | Inpatient (IN) | payer MEDICAID ==
[~2018-12-01] VITALS: Ht 167.6 cm; Wt 80.7 kg
[~2018-12-01 09:56] MED LIST changes: +ALPOS BOTH EYES; +CLON0.5T11 PO; -CLON1TAB1 PO; +EFAV1TAB PO; +EFFXR75 PO; +GABA400C PO; -GABA600T1 PO; +MULT-405 PO; +NICO1PAT64 TD; -OMEP20EC4 PO; +QUET100T44 PO; +TIM.5OS OP; -VIC PO; -[UNRECOGNIZED DRUG - CODE] PO
--- NOTE | 2018-12-01 09:56 | NUR ---
PT BIB EMS TO BED 5.
--- NOTE | 2018-12-01 09:58 | NUR ---
DR. LUDWIG AT BEDSIDE EVALUATING PATIENT.
--- NOTE | 2018-12-01 10:00 | NUR ---
BIBA FOR COMPLAINTS OF CP, GENERALIZED PAIN, ETOH, AND SELF MUTILATION. PT APPEARS INTOXICATED, SLURRED SPEECH, AND SLIGHT TREMORS. PT STATES 9/10 GENERALIZED PAIN. 2X BEDRAILS UP FOR SAFETY. PT DESCRIBES CP PERSISTENT STABBING PAIN. HX: ANXIETY, STROKE, DEPRESSION, GLAUCOMA, HTN
[2018-12-01 10:01] VITALS: BP 99/66
--- NOTE | 2018-12-01 10:10 | NUR ---
PATIENT PLACED CLOSE TO THE NURSES STATION FOR CLOSE WATCH AND MONITORING. PATIENT STATED HE WANTED TO KILL HIMSELF/PATIENT INTOXICATED. PATIENT PUT ON A GOWN. SAFETY MEASURES OBSERVED. PER DR. LUDWIG, PATIENT TOO INTOXICATED FOR TELEPSYCH AT THIS TIME.
[2018-12-01 10:36] LABS: BASOPHILS % (AUTO) 0.6 % (0.0-2.0); EOSINOPHILS # (AUTO) 0.1 K/uL (0-0.4); EOSINOPHILS % (AUTO) 1.5 % (0.0-4.0); HEMATOCRIT 33.9 % (36-52); HEMOGLOBIN 11.7 g/dL (12.0-18.0); LYMPHOCYTES # (AUTO) 0.7 K/uL (2.0-11.5); MEAN CORPUSCULAR HEMOGLOBIN 32 pg (27-31); MEAN CORPUSCULAR HGB CONC 34 g/dL (33-37); MEAN CORPUSCULAR VOLUME 93.9 fL (80-94); MONOCYTES # (AUTO) 0.4 K/uL (0.8-1.0); MONOCYTES % (AUTO) 8.8 % (1.7-9.3); NEUTROPHILS % (AUTO) 73.1 % (42.2-75.2); PLATELET COUNT (AUTO) 99 K/uL (140-450); RED BLOOD CELL COUNT(AUTO) 3.61 MIL/uL (4.20-6.10); RED CELL DISTRIBUTION WIDTH 14.5 % (11.6-13.7); WHITE BLOOD COUNT (AUTO) 4.1 K/uL (4.8-10.8)
[2018-12-01 10:54] LABS: ALBUMIN 3.5 g/dL (3.4-5.0); ANION GAP 11.2 (8-16); ASPARTATE AMINOTRANSFERASE 40 U/L (15-37); CARBON DIOXIDE 26.5 mmol/L (21-32); CHLORIDE 98 mmol/L (98-107); CREATININE 1.3 mg/dL (0.7-1.3); GFR ARICAN-AMERICAN 73 mL/min (>90); GLUCOSE 77 mg/dL (74-106); POTASSIUM 3.7 mmol/L (3.5-5.1); SODIUM SERUM 132 mmol/L (136-145); UREA NITROGEN, BLOOD 18 mg/dL (7-18)
[2018-12-01 10:55] LABS: ACETAMINOPHEN < 0.5 ug/ml (10-30); SALICYLATE < 2.8 mg/dL (2.8-20.0)
--- NOTE | 2018-12-01 10:59 | NUR ---
ENCOURAGED PT TO PROVIDE URINE SAMPLE. PT STATED, "I DONT FEEL LIKE URINATING".
--- NOTE | 2018-12-01 12:20 | NUR ---
SUBMITTED REQUEST FOR TELEPSYCH PER DR. LUDWIG.
--- NOTE | 2018-12-01 14:04 | NUR ---
PT SPEAKING WITH TELEPSYCH DR TOSCANO
--- NOTE | 2018-12-01 15:00 | NUR ---
AWAITING FOR REPORT FROM PSYCHIATRIST. PATIENT REMAINED MONITORED. AROUSABLE
--- NOTE | 2018-12-01 15:13 | NUR ---
RECEIVED REPORT FROM PSYCHIATRIST/DISPOSITION.
--- NOTE | 2018-12-01 17:30 | NUR ---
Pt report given to TIMMY Esparza in med-surg floor. Transfer of care at this time.
[2018-12-01] MEDS ORDERED: LORazepam 2 MG/ML VIAL IM/IVP PRN (17:35)
[2018-12-01] MEDS ORDERED: ACETAMINOPHEN 325 MG TAB PO PRN (17:35)
[2018-12-01] MEDS ORDERED: MORPHINE SULFATE 2 MG/ML SYR IVP PRN (17:35)
[2018-12-01] MEDS ORDERED: ONDANSETRON 4 MG/2 ML VIAL IM/IVP PRN (17:35)
[2018-12-01] MEDS ORDERED: DOCUSATE SODIUM 100 MG GELCAP PO PRN (17:35)
--- NOTE | 2018-12-01 18:20 | NUR ---
PT WAS TRANSFERRED FROM ED IN WHEELCHAIR, AMBULATED SELF TO BED, STEADY GAIT, REPORT WAS GIVEN AT BEDSIDE. VITAL SIGNS WAS TAKEN, MRSA WAS SWABBED. PT WAS AWAKE, ALERT, RESPIRATIONS EVEN, UNLABORED ON RA. SKIN DRY, WARM, NO IV ACCESS AT THIS TIME. WILL ATTEMPT LATER. PT WAS ORIENTED ROOM, STAFF, AND CALL LIGHT. PLAN OF CARE WAS DISCUSSED WITH PT, BED IN LOW POSITION. SIDE RAILS UP, CALL WITHIN REACH, WILL CONTINUE TO MONITOR
[2018-12-01 18:30] VITALS: BP 122/75
[2018-12-01 18:48] LABS: APPEARANCE,URINE CLEAR (CLEAR); BILIRUBIN,URINE NEGATIVE (NEGATIVE); BLOOD, URINE NEGATIVE (NEGATIVE); COLOR,URINE YELLOW (YELLOW); LEUKOCYTE ESTERASE ,URINE NEGATIVE (NEGATIVE); NITRITE, URINE NEGATIVE (NEGATIVE); PH,URINE 5.5 (5.0-9.0); UGLUCOSE NEGATIVE (NEGATIVE)
[2018-12-01 18:55] LABS: PROTHROMBIN TIME 9.6 secs (10.8-13.4)
[2018-12-01 19:00] LABS: BARBITURATE, URINE NEG. ng/ml (NEG <=200); BENZODIAZEPINE, URINE POS. ng/mL (NEG <=200); CANNABINOID, URINE NEG. ng/mL (NEG <=50); COCAINE, URINE NEG. ng/mL (NEG <=300); OPIATE, URINE POS. ng/mL (NEG <=2000); PHENCYCLIDINE SCREEN,URINE NEG. ng/mL (NEG <=25)
[2018-12-01 19:02] LABS: MAGNESIUM 1.9 mg/dL (1.8-2.4)
[2018-12-01] MEDS ORDERED: NICOTINE 7 MG TD SCH (19:15)
--- NOTE | 2018-12-01 19:24 | NUR ---
ENDORSEMENT GIVEN TO INSURANCE PROFESSIONAL NURSE. PATIENT IS STABLE AT THIS TIME
--- NOTE | 2018-12-01 19:25 | NUR ---
RECEIVED BEDSIDE REPORT. PT IS AAO X4. ON ROOM AIR. RESPIRATIONS ARE EQUAL AND UNLABORED. NO IV ACCESS. WILL ATTEMPT PER NURSE THEY WERE UNABLE TO GET IV ACCESS. PER NURSE SKIN INTACT HAS SCAB ON HEEL. PT DX SI ON 5150 HOLD PSYCH CONSULT PENDING. PT WITH 1:1 SITTER. PLAN OF CARE DISCUSSED. WILL CONTINUE TO MONITOR.
--- NOTE | 2018-12-01 19:50 | NUR ---
PAGED DR MADISON MAHONEY TO START IV ON FOOT. NEW IV ACCESS ON R FOOT 24G. NO S/S OF DISTRESS. PT TOLERATED WELL. WILL CONTINUE TO MONITOR.
[2018-12-01] MEDS ORDERED: QUEtiapine FUMARATE 100 MG TAB PO SCH ×2 (21:00→22:00)
[2018-12-01] MEDS ORDERED: QUETIAPINE FUMARATE 100 MG PO SCH (21:00)
[2018-12-01] MEDS ORDERED: FOLIC ACID 5 MG/ML SYR ONE (21:33)
[2018-12-01] MEDS ORDERED: THIAMINE 200 MG/2 ML VIAL ONE (21:33)
[2018-12-01] MEDS ORDERED: MULTIVITAMIN-12 10 ML VIAL IV ONE (21:33)
[2018-12-01] MEDS: NACL 0.9% 1,000 ML IV SCH (21:42)
[2018-12-01] MEDS ORDERED: MAG SULF 2000 MG/WATER PREMIX 50 ML IV ONE (21:43)
[2018-12-01] MEDS: HYDROcodone/APAP 5/325 MG 1 TAB TAB PO PRN (21:52)
[2018-12-01] MEDS: clonazePAM 0.5 MG TAB PO SCH (21:53)
--- NOTE | 2018-12-01 21:54 | NUR ---
ALL DUE MEDICATIONS GIVEN. BANANA BAG INFUSING PER ORDERS. PT REFUSED SEROQUEL. NORCO GIVEN FOR PAIN 01/23. SAFETY MEASURES ARE IN PLACE. 1:1 SITTER. WILL CONTINUE TO MONITOR
[2018-12-01] MEDS ORDERED: MULTIVITAMIN-12 10 ML, THIAMINE 100 MG, FOLIC ACID 1 MG, MAGNESIUM SULFATE 50% 2,000 MG... IV SCH ×5 (22:00)
--- NOTE | 2018-12-01 22:40 | NUR ---
DR VELÁSQUEZDESTINEE IN TO SEE PT. WILL AWAIT ANY NEW ORDERS. ALL SAFETY MEASURES ARE IN PLACE. WILL CONTINUE TO MONITOR.
[2018-12-02] VITALS: BP 111/65
--- NOTE | 2018-12-02 | NUR ---
VITAL SIGNS ARE WITHIN NORMAL LIMITS. ALL NEEDS MET AT THIS TIME. WILL CONTINUE TO MONITOR.
--- NOTE | 2018-12-02 02:00 | NUR ---
PT IS SLEEPING COMFORTABLY IN BED. RESPIRATIONS ARE EQUAL AND UNLABORED. SAFETY MEASURES ARE IN PLACE.
[2018-12-02] MEDS: HYDROcodone/APAP 5/325 MG 1 TAB TAB PO PRN ×4 (03:13→19:59)
[2018-12-02] MEDS: LORazepam 2 MG/ML VIAL IVP PRN ×2 (03:13→20:55)
--- NOTE | 2018-12-02 04:12 | NUR ---
PT SLEEPING COMFORTABLY IN BED. RESPIRATIONS ARE EQUAL AND UNLABORED. SAFETY MEASURES ARE IN PLACE.
[2018-12-02] MEDS: NACL 0.9% 1,000 ML IV SCH ×2 (05:31→09:17)
--- NOTE | 2018-12-02 06:14 | NUR ---
PT IS RESTING COMFORTABLY IN BED DRINKING COFFEE. ALL NEEDS MET AT THIS TIME.
[2018-12-02 06:40] LABS: BASOPHILS % (AUTO) 0.9 % (0.0-2.0); EOSINOPHILS # (AUTO) 0.1 K/uL (0-0.4); EOSINOPHILS % (AUTO) 3.2 % (0.0-4.0); HEMATOCRIT 32.5 % (36-52); HEMOGLOBIN 11.6 g/dL (12.0-18.0); LYMPHOCYTES # (AUTO) 0.9 K/uL (2.0-11.5); LYMPHOCYTES % (AUTO) 32.4 % (20.5-51.1); MEAN CORPUSCULAR HEMOGLOBIN 33 pg (27-31); MEAN CORPUSCULAR HGB CONC 36 g/dL (33-37); MEAN CORPUSCULAR VOLUME 92.9 fL (80-94); MONOCYTES # (AUTO) 0.3 K/uL (0.8-1.0); MONOCYTES % (AUTO) 9.6 % (1.7-9.3); NEUTROPHILS # (AUTO) 1.4 K/uL (1.8-7.7); NEUTROPHILS % (AUTO) 53.9 % (42.2-75.2); PLATELET COUNT (AUTO) 95 K/uL (140-450); RED CELL DISTRIBUTION WIDTH 14.3 % (11.6-13.7); WHITE BLOOD COUNT (AUTO) 2.6 K/uL (4.8-10.8)
[2018-12-02 06:46] LABS: ANION GAP 10.1 (8-16); CARBON DIOXIDE 26.6 mmol/L (21-32); CREATININE 1.2 mg/dL (0.7-1.3); POTASSIUM 3.7 mmol/L (3.5-5.1)
[2018-12-02 06:54] LABS: CHOL/HDL RATIO 3.1 (1-4.5); MAGNESIUM 2.4 mg/dL (1.8-2.4)
--- NOTE | 2018-12-02 07:23 | NUR ---
RECEIVED BEDSIDE REPORT FROM TIMMY TARIQ. PT STABLE, AWAKE, AND ALERT AND ORIENTED X4. NO SIGNS OF DISTRESS NOTED. DENIES PAIN OR SOB. NO REDNESS, SWELLING, OR INFLAMMATION NOTED ON IV SITE. BED IN LOWEST POSITION, BED ALARM ON. CALL VERAS WITHIN REACH. SAFETY MEASURES IN PLACE. PLAN OF CARE REVIEWED. SITTER AT THE BEDSIDE.
--- NOTE | 2018-12-02 07:24 | NUR ---
GAVE BEDSIDE REPORT TO DEBBIE WARNER. PT ENDORSED IN STABLE CONDITION.
[2018-12-02 08:00] VITALS: BP 101/66
--- NOTE | 2018-12-02 08:09 | NUR ---
PATIENT HAS BEEN SCREENED AND CATEGORIZED LOW NUTRITION RISK. PATIENT WILL BE SEEN WITHIN 7 DAYS OF ADMISSION. 12/08/[address]
--- NOTE | 2018-12-02 08:38 | NUR ---
Packets have been faxed to the following facilities for review: [facility] Joesph Flores
[2018-12-02] MEDS ORDERED: EFAVIRENZ PO SCH (09:00)
[2018-12-02] MEDS ORDERED: EMTRICITAB PO SCH (09:00)
[2018-12-02] MEDS ORDERED: TENOFOVIR PO SCH (09:00)
[2018-12-02] MEDS ORDERED: MULTIVITAMIN 1 TAB PO SCH (09:00)
[2018-12-02] MEDS ORDERED: GABAPENTIN 100 MG CAP PO SCH (09:00)
[2018-12-02] MEDS: EMTRICITABINE/TENOFOVIR 200-300MG 1 TAB PO SCH (09:10)
[2018-12-02] MEDS: BRIMONIDINE TARTRATE 0.2% OP 5 ML BTL BOTH EYES SCH ×3 (09:11→17:37)
[2018-12-02] MEDS: GABAPENTIN 100 MG CAP PO SCH ×2 (09:12→12:57)
[2018-12-02] MEDS: VENLAFAXINE XR 75 MG CAPER PO SCH (09:12)
[2018-12-02] MEDS: FOLIC ACID 1 MG TAB PO SCH (09:12)
[2018-12-02] MEDS: MULTIVITAMIN 1 TAB PO SCH (09:12)
[2018-12-02] MEDS: THIAMINE 100 MG TAB PO SCH (09:13)
[2018-12-02] MEDS: clonazePAM 0.5 MG TAB PO SCH ×2 (09:15→17:39)
--- NOTE | 2018-12-02 09:24 | NUR ---
ADMINISTERED SCHEDULED MEDICATIONS, PT TOLERATED WELL. NO OTHER NEEDS AT THIS TIME.
--- NOTE | 2018-12-02 11:30 | NUR ---
PT GIVEN SNACKS PER REQUEST.
--- NOTE | 2018-12-02 12:25 | NUR ---
MADE DR DIEZ AWARE OF PT REQUEST FOR HOME MED [facility]OLOL TO BE CONTINUED. MD WILL SEE PT.
--- NOTE | 2018-12-02 13:02 | NUR ---
ADMINISTERED SCHEDULED MEDICATIONS, PT TOLERATED WELL. NO OTHER NEEDS AT THIS TIME.
[2018-12-02] MEDS ORDERED: GABA400C PO (13:26)
[2018-12-02] MEDS ORDERED: BACL20TA4 PO (13:26)
[2018-12-02] MEDS ORDERED: THIA-34 PO (13:49)
[2018-12-02] MEDS ORDERED: ATI2I IVP (13:49)
[2018-12-02] MEDS ORDERED: FOLI1TAB90 PO (13:49)
--- NOTE | 2018-12-02 13:55 | NUR ---
CALLED [facility] AND SPOKE WITH CHANDLER. HE SAID THEY ARE WORKING ON RX FOR HIS HIV MEDICATIONS. [facility] THEN MAY BE ABLE TO TAKE THE PATIENT. I GAVE THEM THE PHONE NUMBER TO THE FLOOR TO CALL.
--- NOTE | 2018-12-02 14:20 | NUR ---
ADMINISTERED PRN NORCO FOR 7/10 BACK PAIN. PT TOLERATED WELL.
--- NOTE | 2018-12-02 15:08 | NUR ---
Bed placement at [facility] pending prescription for HIV medication. contact nurse, Keri, to fax a prescription for the medication and [facility] will contact pharmacy to fill. Waited x1 hour and still had not recv'd. Called Keri back to inform and fax did not go thru so she refaxed. Contacted [facility] to inform of situation but they could no longer wait and had to release the bed. [facility] will continue to look for placement for this patient.
[2018-12-02 16:00] VITALS: BP 102/72
--- NOTE | 2018-12-02 16:30 | NUR ---
VITAL SIGNS TAKEN, PT STABLE. PT AMBULATED TO THE BATHROOM WITH STEADY GAIT.
[2018-12-02] MEDS: GABAPENTIN 300 MG CAP PO SCH (17:37)
[2018-12-02] MEDS: BACLOFEN 10 MG TAB PO SCH (17:38)
--- NOTE | 2018-12-02 17:44 | NUR ---
ADMINISTERED SCHEDULED MEDICATIONS, PT TOLERATED WELL. NO OTHER NEEDS AT THIS TIME.
--- NOTE | 2018-12-02 18:15 | NUR ---
PT REFUSED IV FLUIDS. PT SALINE LOCKED.
--- NOTE | 2018-12-02 19:10 | NUR ---
ENDORSED PT TO TIMMY TRIPP FOR CONTINUITY OF CARE. PT STABLE.
--- NOTE | 2018-12-02 19:11 | NUR ---
RECEIVED REPORT FROM AM NURSE. PATIENT LYING DOWN IN BED WATCHING TV. NO DISTRESS NOTED. DENIES ANY PAIN. AT THIS TIME. AAOX3, CALM, COOPERATIVE AT THIS TIME. RESPIRATIONS EVEN, UNLABORED, ON ROOM AIR. IV SITE INTACT, PATENT, AND CURRENTLY ON SALINE LOCK PATIENT REFUSED IVF ORDERED, AWARE. HAS BLE CLOSED SCABS NOTED. REVIEWED PLAN OF CARE WITH PATIENT. PATIENT VERBALIZED UNDERSTANDING. SAFETY MEASURES IN PLACE, SITTER AT BEDSIDE. WILL CONTINUE TO MONITOR.
--- NOTE | 2018-12-02 20:13 | NUR ---
DR. FELIPE AT BEDSIDE PERFORMING EVALUATION WITH PATIENT. WILL CONTINUE TO MONITOR.
--- NOTE | 2018-12-02 20:15 | NUR ---
PATIENT COMPLAINS OF PAIN, NORCO GIVEN AT THIS TIME. REFUSED SEROQUEL SCHEDULED MEDICATION. WILL CONTINUE TO MONITOR.
--- NOTE | 2018-12-02 20:59 | NUR ---
PATIENT ANXIOUS, ATIVAN GIVEN PER MD ORDERS. WILL CONTINUE TO MONITOR.
[2018-12-02] MEDS ORDERED: QUEtiapine FUMARATE 100 MG TAB PO SCH (21:00)
--- NOTE | 2018-12-02 22:01 | NUR ---
PATIENT CLEARED FROM 5150. SECURITY BROUGHT PATIENT'S BELONGINGS WITH ENV[employer]OPE MONEY,$38 INSIDE ENVELOPE, GIVEN TO PATIENT. PATIENT ASSUMES FURTHER RESPONSIBILITY WITH MONEY. PATIENT ACKNOWLEDGES. WENT TO [employer] AND BOUGHT SNICKERS AND [employer] $5 PER PATIENT REQUESTS. CANDY BARS GIVEN TO PATIENT. WILL CONTINUE TO MONITOR.
[2018-12-02 23:44] VITALS: BP 121/70
--- NOTE | 2018-12-02 23:48 | NUR ---
PATIENT LYING DOWN IN BED SLEEPING, AROUSABLE BY VOICE. NO DISTRESS NOTED. DENIES ANY PAIN. WILL CONTINUE TO MONITOR.
--- NOTE | 2018-12-03 00:01 | NUR ---
PATIENT COMPLAINS OF PAIN, NORCO GIVEN PER ORDERS. WILL CONTINUE TO MONITOR.
[2018-12-03] MEDS: NACL 0.9% 1,000 ML IV SCH (03:11)
--- NOTE | 2018-12-03 03:25 | NUR ---
PATIENT GOT DRESSED UP IN OWN CLOTHES, DOES NOT WANT TO STAY IN HOSPITAL GOWN. REINFORCED PLAN OF CARE OF WAITING FOR CASE MANAGEMENT TOMORROW TO HELP PATIENT WITH RESOURCES. PATIENT VERBALIZED UNDERSTANDING.
[2018-12-03] MEDS: HYDROcodone/APAP 5/325 MG 1 TAB TAB PO PRN ×3 (04:14→08:42)
--- NOTE | 2018-12-03 04:15 | NUR ---
PATIENT COMPLAINS OF PAIN, NORCO GIVEN PER ORDERS. WILL CONTINUE TO MONITOR.
[2018-12-03] MEDS: LORazepam 2 MG/ML VIAL IVP PRN (05:39)
--- NOTE | 2018-12-03 05:43 | NUR ---
PATIENT FEELS ANXIOUS, ATIVAN GIVEN PER MD ORDERS. WILL CONTINUE TO MONITOR.
--- NOTE | 2018-12-03 07:12 | NUR ---
RECEIVED BEDSIDE REPORT FROM TIMMY TRIPP. PT STABLE, AWAKE, AND ALERT AND ORIENTED X4. NO SIGNS OF DISTRESS NOTED. DENIES PAIN OR SOB. NO REDNESS, SWELLING, OR INFLAMMATION NOTED ON IV SITE. CALL VERAS WITHIN REACH. BED IN LOWEST POSITION, BED ALARM ON. SAFETY MEASURES IN PLACE. PLAN OF CARE REVIEWED.
--- NOTE | 2018-12-03 07:13 | NUR ---
GAVE REPORT TO AM SHIFT NURSE FOR CONTINUITY OF CARE. PATIENT IN STABLE CONDITION.
[2018-12-03 08:00] VITALS: BP 118/82
--- NOTE | 2018-12-03 08:25 | NUR ---
MADE DR GANT AWARE THAT NO MORNING LABS WERE ORDERED FOR PT. WILL CONTINUE TO MONITOR.
[2018-12-03] MEDS: BRIMONIDINE TARTRATE 0.2% OP 5 ML BTL BOTH EYES SCH (08:40)
[2018-12-03] MEDS: EMTRICITABINE/TENOFOVIR 200-300MG 1 TAB PO SCH (08:40)
[2018-12-03] MEDS: BACLOFEN 10 MG TAB PO SCH (08:41)
[2018-12-03] MEDS: GABAPENTIN 300 MG CAP PO SCH (08:41)
[2018-12-03] MEDS: FOLIC ACID 1 MG TAB PO SCH (08:41)
[2018-12-03] MEDS: THIAMINE 100 MG TAB PO SCH (08:42)
[2018-12-03] MEDS: VENLAFAXINE XR 75 MG CAPER PO SCH (08:42)
[2018-12-03] MEDS: MULTIVITAMIN 1 TAB PO SCH (08:42)
[2018-12-03] MEDS: clonazePAM 0.5 MG TAB PO SCH (08:44)
--- NOTE | 2018-12-03 08:45 | NUR ---
ADMINISTERED SCHEDULED MEDICATIONS AND PRN NORCO FOR 6/10 BACK PAIN. PT TOLERATED WELL.
[2018-12-03] MEDS ORDERED: TIMOLOL OP 0.5% 5 ML BTL OP SCH (09:00)
--- NOTE | 2018-12-03 10:15 | NUR ---
PT MADE AWARE OF DISCHARGE ORDER BY DR GANT. PATIENT CLEARED BY PSYCHIATRIST DR FELIPE FOR 5150 HOLD LAST NIGHT 12/02/18. PT UPSET, YELLING, AND BEING DISRUPTIVE. SECURITY STAFF CALLED.
--- NOTE | 2018-12-03 10:35 | NUR ---
PT YELLING AND BEING DISRUPTIVE. PT REFUSED TO WAIT FOR DISCHARGE PAPERWORK AND PRESCRIPTION. PT ADVISED TO WAIT FOR DISCHARGE PAPERWORK AND PRESCRIPTION, PT REFUSED. AGILE SCRUM MASTER STEF SANTOS. D/C IV, CATHETER TIP INTACT, BLEEDING CONTROLLED. SKIN INTACT, PT REFUSED FLU AND PNEUMONIA VACCINE. PT TOOK ALL BELONGINGS FROM SECURITY. BUS PASS GIVEN. PT STABLE, AMBULATED TO THE HALLWAY WITH CANE. ESCORTED PT TO THE LOBBY WITH SECURITY.
== END 2018-12-03 10:35 | disposition home or self-care (01) | DRG 817 ==
LOC: MED 09:56 → MTU 17:39
PROVIDERS: ADMIT General Practice; ATTEND General Practice
DX: T40.602A Poisoning by unspecified narcotics, intentional self-harm, initial encounter (principal); G92 Toxic encephalopathy; D61.818 Other pancytopenia; R45.851 Suicidal ideations; E87.1 Hypo-osmolality and hyponatremia; F32.9 Major depressive disorder, single episode, unspecified; G89.29 Other chronic pain; Z59.0 Homelessness; Z91.5 Personal history of self-harm; F10.20 Alcohol dependence, uncomplicated; Z88.8 Allergy status to other drugs, medicaments and biological substances; Z86.73 Personal history of transient ischemic attack (TIA), and cerebral infarction without residual deficits; I10 Essential (primary) hypertension; B19.20 Unspecified viral hepatitis C without hepatic coma; H40.9 Unspecified glaucoma; F19.10 Other psychoactive substance abuse, uncomplicated; F15.90 Other stimulant use, unspecified, uncomplicated; F11.90 Opioid use, unspecified, uncomplicated; Y92.89 Other specified places as the place of occurrence of the external cause; T43.622A Poisoning by amphetamines, intentional self-harm, initial encounter; Z21 Asymptomatic human immunodeficiency virus [HIV] infection status
CPT/HCPCS: 36415; 71045; 80048; 80053; 80305; 81003; 82140; 83735; 83880; 84100; 85025; 85610; 85730; 87081; 93005; 99285; A9153; C1758; G0480; G0482; J2060; J3411; J3475; J3490; J7030; Q0092